=== PATIENT | female | born 2005 | race African-American/Black ===

== ENCOUNTER 2025-01-23 11:49 | Emergency (ER) | payer OTHER ==
--- OUTSIDE RECORDS SUMMARY | 2025-01-23 11:55 | XMS REPORT | Continuity of Care Document ---
Author Name Unknown Address [address] [facility] [address] [place] [address] [facility] Address [address] [facility] [address] [place] [address] Care Team Providers Care Egyptologist Name Role Phone Jacoby Gaona Primary Care Physician [phone] Hernesto HILL, Bam Gonzalez Attending Clinician Unavail able Neal Jasso MD Attending Clinician [phone] Nash Simpson MD Attending Clinician Roopa Gee DO Attending Clinician + Tory Dobbs MD Attending Clinician [phone] GUILLE SUNSHINE Attending Clinician Unavailable Rosanne Neil CNM Attending Clinician NIHCOLAS FRAZIER Attending Clinician Unavail able ROSANNE NEIL Attending Clinician UnavailNicholas Villareal Attending Clinician + NEAL JASSO Attending Clinician Unavailable NEAL JASSO Attending Clinician Unavailable Ultrasound, Ang-Mfm Attending Clinician Unavaila MARIA EUGENIA Vincent Attending Clinician Unavailable MARIA EUGENIA STRINGER Attending Clinician Unavailable MARIA EUGENIA STRINGER Attending Clinician Unavailable Maria Eugenia Stringer MD Attending Clinician Doctor Unassigned, [place] Attending Clinician U navailable Nurse, [facility] Obgyn Attending Clini amber Unavailable Karin WHKITTYPNicholas Attending Clinician + Doctor Unassigned, [place] Attending Clinician U navailable OXANA, Kemar LOPEZ Attending Clinician Unavailable Oxana PACKemar Attending Clinician [phone] SUMI NOVOA Attending Clinician Unavailable Sumi Novoa MD Attending Clinician [phone] Neal Jasso MD Admitting Clinician [phone] Kemar RUANO Admitting Clinician Unavailable Payers Payer Name Policy Type Policy Number Effective Date Expirati on Date Source [facility] [id number] 2023 00:00:00 Problems Condition Name Condition Details Condition Category Status Onset Date Resolution Date Last Treatment Date Treating Clinician Comments Source 39 weeks gestation of 39 weeks gestation of Disease Active 8-05 00:00: 00 [facility] Encounter for elective induction of labor Encounter for elective induction of labor Disease Active 8-05 00:00: 00 [facility] GBS (group B Streptococ cus carrier), +RV culture, currently GBS (group B Streptococ cus carrier), +RV culture, currently Disease Active 7-29 00:00: 00 [facility] Obesity affecting in third trimester Obesity affecting in third trimester Disease Active 6-20 00:00: 00 [facility] Anemia of mother in , antepartum Anemia of mother in , antepartum Disease Active 5-08 00:00: 00 [facility] Excessive weight gain affecting Excessive weight gain affecting Disease Active 4-22 00:00: 00 [facility] Maternal varicella, non-immune Maternal varicella, non-immune Disease Active 2023-06 2-26 00:00: 00 [facility] Flu vaccine refused Flu vaccine refused Disease Active 2023-06 2-23 00:00: 00 [facility] No known active problems No known active problems Disease [facility] Nausea and vomiting during Nausea and vomiting during Disease Resolve d 2023-06 00:00: 00 2024-07-08 00:00:00 2024-07-08 14:04:12 [facility] Need for HPV vaccinatio n Need for HPV vaccinatio n Disease Resolve d 3-11 00:00: 00 2024-06-06 00:00:00 2024-06-06 09:34:09 [facility] Allergies, Adverse Reactions, Alerts Allergy Name Allergy Type Status Severity Reaction(s) Onset Date Inactive Date Treating Clinician Comments Source SEAFOOD/ FISH Food Active Swelling 2023-06 00:00: 00 [facility] Seafood/ Fish Propensi ty to adverse reaction s Active Swelling 2023-06 00:00: 00 [facility] SHRIMP DRUG INGREDI Active Swelling 2020-06 00:00: 00 [facility] Shrimp Propensi ty to adverse reaction s Active Swelling 2020-06 00:00: 00 [facility] Social History Social Habit Start Date Stop Date Quantity Comments Source ASSERTION 2024-05-02 00:00:00 Not [facility] Exposure to SARS-CoV-2 (event) Not sure [facility] Alcoholic beverage intake 2025-01-19 00:00:00 2025-01-19 00:00:00 Lifetime non-drinker (finding) [facility] History of Social function 2024-06-06 00:00:00 2024-06-06 00:00:00 [facility] Tobacco use and exposure 2023-02-03 00:00:00 2023-02-03 00:00:00 Smokeless tobacco non-user [facility] Alcohol intake 2023-02-03 00:00:00 2023-02-03 00:00:00 Lifetime non-drinker (finding) [facility] Sex assigned at 2003 00:00:00 2005 00:00:00 [facility] Smoking Status Start Date Stop Date Source Tobacco smoking consumption unknown [facility] Never smoked tobacco [facility] Medications Ordered Medication Name Filled Medication Name Start Date Stop Date Current Medication? Ordering Clinician Indication Dosage Frequency Signature (SIG) Comments Components Source ketorolac (TORADOL) injection 30 mg ketorolac (TORADOL) injection 30 mg 01-20 16:30: 00 01-20 20:19 :00 Yes 30mg 30 mg, Slow IV Push, ONCE, 1 dose, On Thu01/20/25 at 1130, Routine [facility] docusate (COLACE) capsule 200 mg docusate (COLACE) capsule 200 mg 01-20 14:00: 00 01-21 17:53 :37 Yes 200mg 200 mg, Oral, DAILY, First dose on Thu01/20/25 at 0900, Until Discontinu ed, Routine [facility] no.103-iron fum-folic 27 mg iron- 1 mg folic tablet no.103-iron fum-folic 27 mg iron- 1 mg folic tablet 01-20 00:00: 00 Yes [id number] 1{tbl} Take 1 tablet by mouth in the morning. [facility] docusate 100 mg capsule docusate 100 mg capsule 01-20 00:00: 00 Yes [id number] 200mg Take 2 capsules by mouth once daily as needed for Constipati on. [facility] ferrous sulfate 325 mg (65 mg iron) tablet ferrous sulfate 325 mg (65 mg iron) tablet 01-20 00:00: 00 Yes [id number] 325mg Take 1 tablet by mouth in the morning. [facility] ibuprofen 800 mg tablet ibuprofen 800 mg tablet 01-20 00:00: 00 Yes [id number] 800mg Take 1 tablet by mouth every 8 hours as needed (pain). Take with food or milk. [facility] acetaminoph en 500 mg tablet acetaminoph en 500 mg tablet 01-20 00:00: 00 Yes [id number] 1000mg Take 2 tablets by mouth every 8 hours as needed for Pain. [facility] oxyCODONE 5 mg immediate release tablet oxyCODONE 5 mg immediate release tablet 01-20 00:00: 00 01-28 04:59 :00 Yes [id number] 5mg Take 1 tablet by mouth every 6 hours as needed (pain) for up to 7 days. [facility] simethicone (GAS RELIEF (SIMETHICON E)) chewable tablet 160 mg simethicone (GAS RELIEF (SIMETHICON E)) chewable tablet 160 mg 01-19 19:00: 00 01-21 17:53 :37 Yes 160mg 160 mg, Oral, TID, First dose on Blanca 01/19/25 at 1400, Until Discontinu ed, Routine [facility] ibuprofen (MOTRIN) tablet 800 mg ibuprofen (MOTRIN) tablet 800 mg 01-19 15:30: 00 01-21 17:53 :37 Yes 800mg 800 mg, Oral, TID, First dose on [place] 01/19/25 at 1030, Until Discontinu ed, Routine [facility] acetaminoph en (TYLENOL) tablet 1,000 mg acetaminoph en (TYLENOL) tablet 1,000 mg 01-19 15:15: 00 01-21 17:53 :37 Yes 1000mg 1,000 mg, Oral, TID, First dose on [place] 01/19/25 at 1015, Until Discontinu ed, Routine [facility] rho(D) immune globulin (RHOPHYLAC) injection 300 mcg 01-19 15:02: 17 01-21 17:53 :37 No 300ug [facility] oxyCODONE immediate release tablet 5 mg oxyCODONE immediate release tablet 5 mg 01-19 15:02: 14 01-21 17:53 :37 Yes 5mg 5 mg, Oral, Q6HPRN, Starting on Blanca 01/19/25 at 1002, Until 01/21/25 at 1253, Routine, Pain (scale 7-10), 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 approving Restricted medication : NASH SIMPSON [facility] diphenhydrA MINE (BENADRYL) injection 25 mg 01-19 15:02: 14 01-21 17:53 :37 No 25mg [facility] diphenhydrA MINE (BENADRYL) tablet 25 mg 01-19 15:02: 14 01-21 17:53 :37 No 25mg [facility] ondansetron (ZOFRAN (PF)) injection 4 mg 01-19 15:02: 14 01-21 17:53 :37 No 4mg [facility] bisacodyL (DULCOLAX) suppository 10 mg 01-19 15:02: 14 01-21 17:53 :37 No 10mg [facility] magnesium hydroxide (MILK OF MAGNESIA) 400 mg/5 mL suspension 30 mL magnesium hydroxide (MILK OF MAGNESIA) 400 mg/5 mL suspension 30 mL 01-19 15:02: 14 01-21 17:53 :37 Yes 30mL 30 mL, Oral, QDAILYPRN, Starting on Blanca 01/19/25 at 1002, Until 01/21/25 at 1253, Routine, Constipati on [facility] lactated ringers IV infusion 1,000 mL 01-19 15:02: 14 01-21 17:53 :37 No 1000mL [facility] ampicillin (POLYCILLIN -N) 2,000 mg in NaCl 0.9% (NS) 100 mL MINI-BAG ampicillin (POLYCILLIN -N) 2,000 mg in NaCl 0.9% (NS) 100 mL MINI-BAG 01-19 14:30: 00 01-20 09:40 :00 Yes 2g 2,000 mg (2 g), IV Piggyback, Q6H ABX, 4 doses, First dose on Blanca 01/19/25 at 0930, Last dose on Thu01/20/25 at 0330, Administer over 30 Minutes, 100 mL, Reason for Anti-Infec tive: Empiric Therapy for Suspected Infection, Empiric Therapy Site: Pelvic, Duration of therapy: Other (days), Other (days): 2 [facility] gentamicin 400 mg in NaCl 0.9% (NS) 240 mL IVPB gentamicin 400 mg in NaCl 0.9% (NS) 240 mL IVPB 01-19 14:30: 00 01-19 16:53 :00 Yes 5mg/kg 400 mg (rounded from 391 mg = 5 mg/kg ?78.2 kg Adjusted weight), IV Infusion, Q24H ABX, 1 dose, First dose on [place]anca 01/19/25 at 0930, Administer over 60 Minutes, 250 mL, Indication for aminoglyco side: Documented /suspected gram-negat erlinda infection, Patient has/is: None of the above, Reason for Anti-Infec tive: Empiric Therapy for Suspected Infection, Empiric Therapy Site: Pelvic, Duration of therapy: Other (days), Other (days): 2 [facility] sennosides (SENOKOT) tablet 8.6 mg sennosides (SENOKOT) tablet 8.6 mg 01-19 14:00: 00 01-21 17:53 :37 Yes 8.6mg 8.6 mg, Oral, DAILY, First dose on [place]anca 01/19/25 at 0900, Until Discontinu ed, Routine [facility] docusate (COLACE) capsule 100 mg docusate (COLACE) capsule 100 mg 01-19 14:00: 00 01-21 17:53 :37 Yes 100mg 100 mg, Oral, DAILY, First dose on [place] 01/19/25 at 0900, Until Discontinu ed, Routine [facility] morpHINE 30 mg/30 mL (fixed dose) MACHINE SPRAYER injection morpHINE 30 mg/30 mL (fixed dose) MACHINE SPRAYER injection 01-19 14:00: 00 01-20 01:59 :00 Yes Patient Bolus Dose: 1 mg, Patient Bolus Lockout Interval: 10 Minutes, Basal Rate: 0 mg/hr, Four Hour Dose Limit: 24 mg, Intravenou s, 30 mL, CONTINUOUS , Starting on Blanca 01/19/25 at 0900, Until Thu01/19/25 at 2058 [facility] ketorolac (TORADOL) injection 30 mg 01-19 13:16: 00 01-19 13:16 :00 No 30mg 30 mg, Slow IV Push, ONCE, 1 dose, On [place] 01/19/25 at 0830, Routine [facility] naloxone (NARCAN) injection 0.4 mg 01-19 12:52: 14 01-21 17:53 :37 No .4mg 0.4 mg, Slow IV Push, PRN, Starting on [place] 01/19/25 at 0752, Until 01/21/25 at 1253, Routine, Sedation/R espiratory Depression [facility] morpHINE 2 mg/mL LOAD & RESCUE INJECTION SYRG 01-19 12:52: 14 01-21 17:53 :37 No Slow IV Push, Routine [facility] sodium citrate-cit dc acid (BICITRA) 500-334 mg/5 mL solution 30 mL 01-19 10:17: 13 01-19 10:44 :00 No 30mL 30 mL, Oral, PRE-PROCED URE ONCE, 1 dose, Starting on Blanca 01/19/25 at 0517, Until [place]anca 01/19/25 at 0544, Routine, Surgery [facility] bupivacaine (preserv free) 0.5% (SENSORCAIN E MPF) injection 01-19 01:56: 00 Yes Caudal Block, ONCE INTRA PROCEDURE, Starting on Thu01/18/25 at 2055, Until Discontinu ed, Routine, Intra-op [facility] lidocaine 2% (XYLOCAINE) 20 mg/mL (2 %) injection 01-19 01:56: 00 Yes Epidural, ONCE INTRA PROCEDURE, Starting on Thu01/18/25 at 2055, Until Discontinu ed, Routine, Intra-op [facility] FENTanyl (PF) (SUBLIMAZE) injection 01-19 01:06: 00 Yes Epidural, ONCE INTRA PROCEDURE, Starting on Thu01/18/25 at 2006, Until Discontinu ed, Routine, Intra-op [facility] fentaNYL-ro pivacaine 2 mcg/mL-0.1 % (PF) in NS 200 mL epidural infusion RTU 01-18 22:57: 00 Yes Intra-op [facility] Oxytocin in Normal Saline 30 unit/500 mL IV infusion Soln 01-18 17:30: 00 01-19 15:02 :16 No 0mU/min 0-42 chet-unit s/min (0-42 mL/hr), IV Infusion, CONTINUOUS , Starting on Thu01/18/25 at 1230, Infuse IV through a controlled infusion pump at a proximal port on the peripheral IV line. Oxytocin may be increased to 30 milliunits when ordered by a 3rd or 4th year resident or attending physician/ faculty. 3rd or 4th year resident must document a note that the increase to 30 milliunits was discussed with faculty. Oxytocin may be increased to 42 milliunits when ordered by a 3rd or 4th year resident or attending physician/ faculty. 3rd or 4th year resident must document a note that the increase to 42 milliunits was discussed with faculty. Max 42 chet-unit s/min. Oxytocin shall be maintained at a rate that achieves adequate contractio ns. "Adequate contractio ns" means 3-5 contractio ns in 10 minutes averaged over a 30-minute window -or- at least 200 MVU every 10 minutes for 2 hours if an IUPC is in place. Incrementa l dosage of oxytocin is determined by uterine and response; therefore the RN may increase or decrease the dosage by 6mu or discontinu e oxytocin based on maternal and assessment . See policy 7.11.52. For post-deliv lian uterotonic : Increase to 300 mL/hr for 1 hr then 150 mL/hr for 1 hr. For post delivery uterine atony: Start at 600 mL/hr for 1 hr then 150 mL/hr for 1 hr. [facility] lactated ringers IV infusion 500 mL 01-18 16:29: 39 01-19 07:32 :16 No 500mL at 999 mL/hr, 500 mL, IV Infusion, PRN - SEE INSTRUCTIO NS, 1 dose, Starting on Thu01/18/25 at 1129, Until [place]anca 01/19/25 at 0232, Routine [facility] ondansetron (ZOFRAN (PF)) injection 4 mg ondansetron (ZOFRAN (PF)) injection 4 mg 01-18 07:15: 00 01-18 06:43 :00 Yes 4mg 4 mg, Slow IV Push, ONCE, On Thu01/18/25 at 0215, For 1 dose, Please give medication over 2-5 minutes. [facility] ropivacaine 0.2 % (NAROPIN (PF)) epidural infusion 01-18 04:29: 00 Yes Epidural, ONCE INTRA PROCEDURE, Starting on Thu01/17/25 at 2329, Until Discontinu ed, Routine, Intra-op [facility] lidocaine-e pinephrine (XYLOCAINE W/EPINEPHRI NE) 1.5 %-1:200,000 injection 01-18 04:26: 00 Yes Epidural, ONCE INTRA PROCEDURE, Starting on Thu01/17/25 at 2326, Until Discontinu ed, Routine, Intra-op [facility] morpHINE (4 mg/mL) injection 4 mg morpHINE (4 mg/mL) injection 4 mg 01-18 02:15: 00 01-18 01:48 :00 Yes 4mg 4 mg, Slow IV Push, ONCE, 1 dose, On Thu01/17/25 at 2115, Routine [facility] fluconazole (DIFLUCAN) tablet 150 mg fluconazole (DIFLUCAN) tablet 150 mg 01-18 01:30: 00 01-18 02:30 :00 Yes 150mg 150 mg, Oral, Once, 1 dose, On Thu01/17/25 at 2030, Routine, Reason for Anti-Infec tive: Documented Infection, Documented Infection Site: Pelvic, Duration of therapy: Once (ED) [facility] sodium citrate-cit dc acid (BICITRA) 500-334 mg/5 mL solution 30 mL sodium citrate-cit dc acid (BICITRA) 500-334 mg/5 mL solution 30 mL 01-18 00:25: 39 01-18 04:18 :00 Yes 30mL 30 mL, Oral, PRE-PROCED URE ONCE, 1 dose, Starting on Thu01/17/25 at 1925, Until Thu01/17/25 at 2318, Routine, Surgery/Pr ocedure [facility] lactated ringers IV infusion 250 mL 01-18 00:25: 38 01-19 15:02 :16 No 250mL at 999 mL/hr, 250 mL, IV Infusion, PRN - SEE INSTRUCTIO NS, Starting on Thu01/17/25 at 192, Until Thu01/19/25 at 1002, Routine [facility] D5W-LR IV infusion 1,000 mL 01-18 00:25: 38 01-19 15:02 :16 No 1000mL at 1-75 mL/hr, IV Infusion, TITRATE, Starting on Thu01/17/25 at 1924, Until Thu01/19/25 at 1002, Routine [facility] Iron Fum & P-FA-Vit B & C No.9 (INTEGRA PLUS) 125 mg iron- 1 mg Cap 10-20 00:00: 00 Yes [id number] 1{capsu le} Take 1 capsule by mouth in the morning. [facility] proMETHazin e 25 mg tablet - 00:00: 00 10-04 00:00 :00 No [id number] 25mg Take 1 tablet by mouth every 4 (four) hours as needed for Nausea and Vomiting (N/V). [facility] levonorgest rel-ethinyl estradiol (SRONYX) 0.1-20 mg-mcg per tablet 02-05 00:00: 00 06-06 00:00 :00 No [id number] 1{tbl} Take 1 tablet by mouth in the morning. [facility] levonorgest rel-ethinyl estradiol (SRONYX) 0.1-20 mg-mcg per tablet 02-03 00:00: 00 Yes [id number] 1{tbl} Take 1 tablet by mouth in the morning. [facility] ibuprofen (IBU) tablet 600 mg 12-21 21:15: 00 12-21 21:20 :00 No 600mg 600 mg, Oral, ONCE, 1 dose, On 12/21/22 at 1615, CHAYA [facility] ibuprofen 600 mg tablet 12-21 00:00: 00 06-06 00:00 :00 No [id number] 600mg Take 1 tablet by mouth every 6 (six) hours as needed for Pain (scale 4-6). [facility] NaCl 0.9% (NS) IV infusion 1,000 mL 2020-06 04:30: 00 Yes 1000mL at 999 mL/hr, IV Infusion, CONTINUOUS , Starting on Blanca 05/16/21 at 2230, Until Discontinu ed, Routine [facility] diphenhydrA MINE (BENADRYL) injection 25 mg 2020-06 04:30: 00 05-17 03:20 :00 No 25mg 25 mg, Slow IV Push, ONCE, 1 dose, On [place] 05/16/21 at 2230, STAT [facility] famotidine (PEPCID (PF)) injection 20 mg 2020-06 04:30: 00 05-17 03:24 :00 No 20mg 20 mg, Slow IV Push, ONCE, 1 dose, On [place] 05/16/21 at 2230, CHAYA [facility] methylpredn isolone sod succ (SOLU-MEDRO L) injection 125 mg 2020-06 04:15: 00 05-17 03:22 :00 No 125mg 125 mg, IV Piggyback, ONCE, 1 dose, On [place] 05/16/21 at 2215, STAT [facility] predniSONE 10 mg tablet 2020-06 00:00: 00 06-06 00:00 :00 No [id number] TAKE ONE TABLET BY MOUTH REDD [facility] EPINEPHrine (EPIPEN) 0.3 mg/0.3 mL injection 2020-06 00:00: 00 05-17 05:59 :00 No [id number] .3mg 0.3 mL by Intramuscu lar route once now for 1 dose. [facility] Immunizations Ordered Immunization Name Filled Immunization Name Date Status Comments Source Varicella (varivax)(chicken pox) 2025-01-21 00:00:00 Completed [facility] TDAP 2024-11-08 00:00:00 Completed [facility] HPV9 2023-12-29 00:00:00 Completed HPV9 2023-08-24 00:00:00 Completed HPV9 2023-02-03 00:00:00 Completed [facility] HPV9 2023-02-03 00:00:00 Completed [facility] Meningococcal Polysaccharide (groups A, C, Y and W-135) conjugate vaccine (MCV4P) 2017-07-21 00:00:00 Completed TDAP 2017-07-21 00:00:00 Completed HEPATITIS A 2008-09-18 00:00:00 Completed Varicella (varivax)(chicken pox) 2008-09-18 00:00:00 Completed Pneumococcal 7 Conjugate, PCV7 (Prevnar7) 2008-01-20 00:00:00 Completed DTaP, Unspecified Formulation 2008-01-20 00:00:00 Completed HEPATITIS A 2008-01-20 00:00:00 Completed MMR 2008-01-20 00:00:00 Completed IPV 2008-01-20 00:00:00 Completed HIB 4 Dose Schedule 2005-08-19 00:00:00 Completed Pediarix (dtap/hep B/ipv) 2005-08-19 00:00:00 Completed Pneumococcal 7 Conjugate, PCV7 (Prevnar7) 2005-08-19 00:00:00 Completed MMR 2005-08-19 00:00:00 Completed Varicella (varivax)(chicken pox) 2005-08-19 00:00:00 Completed HIB 4 Dose Schedule 2004-05-13 00:00:00 Completed Pediarix (dtap/hep B/ipv) 2004-05-13 00:00:00 Completed Pneumococcal 7 Conjugate, PCV7 (Prevnar7) 2004-05-13 00:00:00 Completed HIB 4 Dose Schedule 2004-02-13 00:00:00 Completed [facility] Pediarix (dtap/hep B/ipv) 2004-02-13 00:00:00 Completed [facility] Pneumococcal 7 Conjugate, PCV7 (Prevnar7) 2004-02-13 00:00:00 Completed [facility] HIB 4 Dose Schedule 2004-02-13 00:00:00 Completed [facility] Pediarix (dtap/hep B/ipv) 2004-02-13 00:00:00 Completed [facility] Pneumococcal 7 Conjugate, PCV7 (Prevnar7) 2004-02-13 00:00:00 Completed [facility] HIB 4 Dose Schedule 2004-02-13 00:00:00 Completed [facility] Pediarix (dtap/hep B/ipv) 2004-02-13 00:00:00 Completed Pneumococcal 7 Conjugate, PCV7 (Prevnar7) 2004-02-13 00:00:00 Completed Hep B, Adol or Pedi Dosage 2003 00:00:00 Completed HPV9 Unknown Completed [facility] Vital Signs Vital Name Observation Time Observation Value Comments S ource Systolic blood pressure 2025-01-21 12:55:00 116 mm[Hg] [facility] Diastolic blood pressure 2025-01-21 12:55:00 67 mm[Hg] [facility] Heart rate 2025-01-21 12:55:00 85 /min [facility] Body temperature 2025-01-21 12:55:00 36.56 Paige [facility] Respiratory rate 2025-01-21 12:55:00 18 /min [facility] Oxygen saturation in Arterial blood by Pulse oximetry 2025-01-21 12:55:00 100 /min [facility] Body height 2025-01-17 23:45:00 167.6 cm [facility] Body weight 2025-01-17 23:45:00 106.641 kg [facility] BMI 2025-01-17 23:45:00 37.95 kg/m2 [facility] Systolic blood pressure 2025-01-19 13:00:00 136 mm[Hg] [facility] Diastolic blood pressure 2025-01-19 13:00:00 75 mm[Hg] [facility] Heart rate 2025-01-19 13:00:00 98 /min [facility] Body temperature 2025-01-19 13:00:00 38.06 Paige [facility] Respiratory rate 2025-01-19 13:00:00 20 /min [facility] Oxygen saturation in Arterial blood by Pulse oximetry 2025-01-19 13:00:00 100 /min [facility] Body height 2025-01-17 23:45:00 167.6 cm [facility] Body weight 2025-01-17 23:45:00 106.641 kg [facility] BMI 2025-01-17 23:45:00 37.95 kg/m2 [facility] Systolic blood pressure 2025-01-06 16:02:00 125 mm[Hg] [facility] Diastolic blood pressure 2025-01-06 16:02:00 72 mm[Hg] [facility] Heart rate 2025-01-06 16:02:00 109 /min [facility] Body temperature 2025-01-06 16:02:00 36.67 Paige [facility] Respiratory rate 2025-01-06 16:02:00 18 /min [facility] Body height 2025-01-06 16:02:00 167.6 cm [facility] Body weight 2025-01-06 16:02:00 101.861 kg [facility] BMI 2025-01-06 16:02:00 36.25 kg/m2 [facility] Systolic blood pressure 2024-12-14 21:07:00 133 mm[Hg] [facility] Diastolic blood pressure 2024-12-14 21:07:00 62 mm[Hg] [facility] Heart rate 2024-12-14 21:07:00 97 /min [facility] Body temperature 2024-12-14 21:07:00 36.61 Paige [facility] Respiratory rate 2024-12-14 21:07:00 17 /min [facility] Body height 2024-12-14 21:07:00 167.6 cm [facility] Body weight 2024-12-14 21:07:00 95.851 kg [facility] BMI 2024-12-14 21:07:00 34.11 kg/m2 [facility] Systolic blood pressure 2024-11-29 20:47:00 121 mm[Hg] [facility] Diastolic blood pressure 2024-11-29 20:47:00 72 mm[Hg] [facility] Heart rate 2024-11-29 20:47:00 95 /min [facility] Body temperature 2024-11-29 20:47:00 36.89 Paige [facility] Respiratory rate 2024-11-29 20:47:00 18 /min [facility] Body height 2024-11-29 20:47:00 167.6 cm [facility] Body weight 2024-11-29 20:47:00 95.312 kg [facility] BMI 2024-11-29 20:47:00 33.92 kg/m2 [facility] Systolic blood pressure 2024-11-08 20:57:00 119 mm[Hg] [facility] Diastolic blood pressure 2024-11-08 20:57:00 68 mm[Hg] [facility] Heart rate 2024-11-08 20:57:00 106 /min [facility] Body temperature 2024-11-08 20:57:00 36.72 Paige [facility] Respiratory rate 2024-11-08 20:57:00 17 /min [facility] Body height 2024-11-08 20:57:00 167.6 cm [facility] Body weight 2024-11-08 20:57:00 89.897 kg [facility] BMI 2024-11-08 20:57:00 31.99 kg/m2 [facility] Systolic blood pressure 2024-10-19 19:48:00 113 mm[Hg] [facility] Diastolic blood pressure 2024-10-19 19:48:00 71 mm[Hg] [facility] Heart rate 2024-10-19 19:48:00 83 /min [facility] Body temperature 2024-10-19 19:48:00 36.72 Paige [facility] Respiratory rate 2024-10-19 19:48:00 18 /min [facility] Body height 2024-10-19 19:48:00 167.6 cm [facility] Body weight 2024-10-19 19:48:00 87.181 kg [facility] BMI 2024-10-19 19:48:00 31.02 kg/m2 [facility] Systolic blood pressure 2024-10-04 17:30:00 127 mm[Hg] [facility] Diastolic blood pressure 2024-10-04 17:30:00 80 mm[Hg] [facility] Heart rate 2024-10-04 17:30:00 98 /min [facility] Body temperature 2024-10-04 17:30:00 35.83 Paige [facility] Respiratory rate 2024-10-04 17:30:00 18 /min [facility] Body height 2024-10-04 17:30:00 167.6 cm [facility] Body weight 2024-10-04 17:30:00 83.553 kg [facility] BMI 2024-10-04 17:30:00 29.73 kg/m2 [facility] Systolic blood pressure 2024-09-05 18:49:00 113 mm[Hg] [facility] Diastolic blood pressure 2024-09-05 18:49:00 65 mm[Hg] [facility] Heart rate 2024-09-05 18:49:00 72 /min [facility] Body temperature 2024-09-05 18:49:00 36.39 Paige [facility] Respiratory rate 2024-09-05 18:49:00 18 /min [facility] Body height 2024-09-05 18:49:00 167.6 cm [facility] Body weight 2024-09-05 18:49:00 77.656 kg pt was weighed twice on two different scales [facility] BMI 2024-09-05 18:49:00 27.63 kg/m2 [facility] Oxygen saturation in Arterial blood by Pulse oximetry 2024-09-05 18:49:00 99 /min [facility] Systolic blood pressure 2024-08-05 15:22:00 107 mm[Hg] [facility] Diastolic blood pressure 2024-08-05 15:22:00 63 mm[Hg] [facility] Heart rate 2024-08-05 15:22:00 83 /min [facility] Body temperature 2024-08-05 15:22:00 36.44 Paige [facility] Respiratory rate 2024-08-05 15:22:00 18 /min [facility] Body height 2024-08-05 15:22:00 175.3 cm [facility] Body weight 2024-08-05 15:22:00 67.784 kg [facility] BMI 2024-08-05 15:22:00 22.07 kg/m2 [facility] Systolic blood pressure 2024-07-08 15:21:00 112 mm[Hg] [facility] Diastolic blood pressure 2024-07-08 15:21:00 70 mm[Hg] [facility] Heart rate 2024-07-08 15:21:00 94 /min [facility] Body temperature 2024-07-08 15:21:00 36.61 Paige [facility] Respiratory rate 2024-07-08 15:21:00 18 /min [facility] Body height 2024-07-08 15:21:00 175.3 cm [facility] Body weight 2024-07-08 15:21:00 68.748 kg [facility] BMI 2024-07-08 15:21:00 22.38 kg/m2 [facility] Systolic blood pressure 2024-06-06 15:11:00 109 mm[Hg] [facility] Diastolic blood pressure 2024-06-06 15:11:00 74 mm[Hg] [facility] Heart rate 2024-06-06 15:11:00 80 /min [facility] Body temperature 2024-06-06 15:11:00 36.22 Paige [facility] Respiratory rate 2024-06-06 15:11:00 15 /min [facility] Body height 2024-06-06 15:11:00 175.3 cm [facility] Body weight 2024-06-06 15:11:00 67.541 kg [facility] BMI 2024-06-06 15:11:00 21.99 kg/m2 [facility] Body temperature 2023-08-24 18:29:00 36.67 Paige [facility] BMI 2023-02-03 14:34:00 19.92 kg/m2 [facility] Systolic blood pressure 2023-02-03 14:34:00 108 mm[Hg] [facility] Diastolic blood pressure 2023-02-03 14:34:00 67 mm[Hg] [facility] Heart rate 2023-02-03 14:34:00 75 /min [facility] Body temperature 2023-02-03 14:34:00 36.5 Paige [facility] Respiratory rate 2023-02-03 14:34:00 20 /min [facility] Body height 2023-02-03 14:34:00 175.3 cm [facility] Body weight 2023-02-03 14:34:00 61.19 kg [facility] Systolic blood pressure 2022-12-21 21:03:00 119 mm[Hg] [facility] Diastolic blood pressure 2022-12-21 21:03:00 74 mm[Hg] [facility] Heart rate 2022-12-21 21:03:00 83 /min [facility] Body temperature 2022-12-21 21:03:00 37.61 Paige [facility] Respiratory rate 2022-12-21 21:03:00 18 /min [facility] Body weight 2022-12-21 21:03:00 58.968 kg [facility] Oxygen saturation in Arterial blood by Pulse oximetry 2022-12-21 21:03:00 99 /min [facility] Heart rate 2021-05-17 04:15:00 90 /min [facility] Oxygen saturation in Arterial blood by Pulse oximetry 2021-05-17 04:15:00 100 /min [facility] Systolic blood pressure 2021-05-17 04:00:00 93 mm[Hg] [facility] Diastolic blood pressure 2021-05-17 04:00:00 60 mm[Hg] [facility] Respiratory rate 2021-05-17 04:00:00 14 /min [facility] Body temperature 2021-05-17 03:06:00 37.39 Paige [facility] Body height 2021-05-17 03:06:00 175.3 cm [facility] Body weight 2021-05-17 03:06:00 58.968 kg [facility] BMI 2021-05-17 03:06:00 19.20 kg/m2 [facility] Body mass index (BMI) [Percentile] Per age and sex 2021-05-17 03:06:00 24.23 % [facility] Procedures Procedure Date / Time Performed Performing Clinician Source CBC WITH DIFF 2025-01-20 09:05:00 Tracie Sanchez [facility] CBC WITH DIFF 2025-01-20 09:05:00 [facility] [id number] [facility] 2025-01-19 10:59:00 Nash Simpson [facility] CENTRAL NEURAXIAL BLOCK 2025-01-18 04:36:00 Roopa Byers [facility] CBC WITH DIFF 2025-01-18 00:58:00 Norberto Anand [facility] HEPATITIS B SURFACE ANTIGEN 2025-01-18 00:58:00 Norberto Anand [facility] HB ABO GROUPING 2025-01-18 00:58:00 Norberto Anand in [facility] RHO (D) IMMUNE GLOBULIN 2025-01-18 00:58:00 Digna Sanchez [facility] HIV 1/2 AG-AB WITH REFLEX 2025-01-18 00:58:00 Norberto Anand [facility] SYPHILIS IGG/IGM 2025-01-18 00:58:00 Norberto Anand [facility] CBC WITH DIFF 2025-01-18 00:58:00 Norberto Anand [facility] HEPATITIS B SURFACE ANTIGEN 2025-01-18 00:58:00 Norberto Anand [facility] HB ABO GROUPING 2025-01-18 00:58:00 Norberto Anand in [facility] RHO (D) IMMUNE GLOBULIN 2025-01-18 00:58:00 Digna Sanchez [facility] HIV 1/2 AG-AB WITH REFLEX 2025-01-18 00:58:00 Norberto Anand [facility] SYPHILIS IGG/IGM 2025-01-18 00:58:00 Norberto Anand [facility] HIV 1/2 AG-AB WITH REFLEX 2024-11-29 20:50:00 Nicholas Frazier [facility] SYPHILIS IGG/IGM 2024-11-29 20:50:00 Lizz Frazier [facility] TDAP VACCINE, >11 YRS, IM 2024-11-08 21:22:43 Nicholas Frazier [facility] POCT URINALYSIS 2024-10-19 19:51:00 Rosanne Neil [facility] POCT URINALYSIS 2024-10-04 17:33:00 Rosanne Neil [facility] SECOND AND THIRD TRIMESTER ULTRASOUND 2024-09-05 20:24:00 Rosanne Neil [facility] POCT URINALYSIS W/O SPECIFIC GRAVITY 2024-09-05 18:55:00 Nicholas Frazier [facility] SECOND AND THIRD TRIMESTER ULTRASOUND 2024-08-08 14:52:00 Rosanne Neil [facility] POCT URINALYSIS 2024-08-05 16:53:00 Rosanne Neil [facility] ALPHA FETOPROTEIN-MATERNAL SER 2024-08-05 15:54:00 Rosanne Neil [facility] NIPT - NON-INVASIVE TEST RESULTS 2024-07-20 18:17:12 Doctor Unassigned, [place] [facility] NIPT - NON-INVASIVE TEST RESULTS 2024-07-15 18:26:50 Doctor Unassigned, [place] [facility] POCT URINALYSIS 2024-07-08 15:22:00 Rosanne Neil [facility] POCT TEST 2024-06-06 15:04:00 Cathy Neil [facility] POCT URINALYSIS W/O SPECIFIC GRAVITY 2024-06-06 15:04:00 Rosanne Neil [facility] GARDASIL 9 (HPV 9V) VACCINE 2023-08-24 18:29:51 Nicholas Frazier [facility] GC & CHLAMYDIA AMPLIFIED ASSAY 2023-02-03 15:48:00 Nicholas Frazier [facility] HIV 1/2 AG-AB WITH REFLEX 2023-02-03 15:48:00 Nicholas Frazier [facility] SYPHILIS IGG/IGM 2023-02-03 15:48:00 Lizz Frazier [facility] GARDASIL 9 (HPV 9V) VACCINE 2023-02-03 14:55:03 Nicholas Frazier [facility] POCT TEST 2023-02-03 14:52:00 Qamar Frazier [facility] NO SHOW OR MISSED APPOINTMENT POLICY ACKNOWLEDGEMENT 2023-02-03 14:01:45 Doctor Unassigned, [place] [facility] XR TOES 2 VW LEFT 2022-12-21 21:40:28 Kemar Ruano [facility] ASSIGNMENT OF BENEFITS 2022-12-21 21:19:48 Docto r Unassigned, [place] [facility] CONSENT/REFUSAL FOR DIAGNOSIS AND TREATMENT 2022-12-21 20:59:27 Doctor Unassigned, [place] [facility] NOTICE OF PRIVACY PRACTICES 2022-12-21 20:58:31 Doctor Unassigned, [place] [facility] NOTICE OF PRIVACY PRACTICES 2021-05-17 03:01:02 Doctor Unassigned, [place] [facility] CONSENT/REFUSAL FOR DIAGNOSIS AND TREATMENT 2021-05-17 03:00:35 Doctor Unassigned, [place] [facility] Encounters Start Date/Time End Date/Time Encounter Type Admission Type Attending [facility] Care Department Encounter ID Source 2025-01-22 00:00:00 2025-01-22 16:12:16 Nurse Triage Bam Eric Miatha R [facility] 1.2.840.114 350.1.13.10 4.2.7.2.686 [id number] [facility] 2025-01-17 18:19:00 2025-01-21 12:53:00 Hospital Encounter Neal Gerard [facility] 1.2.840.114 350.1.13.10 4.2.7.2.686 [id number] [facility] 2025-01-19 06:06:00 2025-01-19 08:00:00 Surgery Nash Simpson [facility] 1.2.840.114 350.1.13.10 4.2.7.2.686 [id number] [facility] 2025-01-17 23:20:00 2025-01-17 23:20:00 Anesthesia Event Rooap Gee Rovnat [facility] 1.2.840.114 350.1.13.10 4.2.7.2.686 [id number] [facility] 2025-01-16 18:00:00 2025-01-16 18:00:00 [facility] [id number] [facility] 2025-01-12 00:00:00 2025-01-13 08:49:50 Telephone Rosanne eNil [facility]ILD [facility] 1.2.840.114 350.1.13.10 4.2.7.2.686 [id number] [facility] 2025-01-06 11:00:00 2025-01-06 11:15:00 Routine Visit R Rosanne Neil [facility] 1.2.840.114 350.1.13.10 4.2.7.2.686 [id number] [facility] 2024-12-14 15:30:00 2024-12-14 16:24:56 Routine Visit R Rosanne Neil [facility] & CHILD [facility] 1.2.840.114 350.1.13.10 4.2.7.2.686 [id number] [facility] 2024-11-29 15:45:00 2024-11-29 16:15:36 Routine Visit R ROSANNE NEIL [facility] MATERNAL & [facility] 1.2.840.114 350.1.13.10 4.2.7.2.686 [id number] [facility] 2024-11-22 15:15:00 2024-11-22 15:15:00 Outpatient R ROSANNE NEIL [facility] [id number] [facility] 2024-11-08 16:00:00 2024-11-08 16:22:15 Routine Visit R Nicholas Frazier [facility] 1.2.840.114 350.1.13.10 4.2.7.2.686 [id number] [facility] 2024-10-20 00:00:00 2024-10-20 15:47:27 Telephone Rosanne Neil [facility]ILD [facility] 1.2.840.114 350.1.13.10 4.2.7.2.686 [id number] [facility] 2024-10-20 00:00:00 2024-10-20 08:42:15 Telephone Martwilbert Rosanne Sera [facility] 1.2.840.114 350.1.13.10 4.2.7.2.686 [id number] [facility] 2024-10-19 14:15:00 2024-10-19 15:47:05 Outpatient R NICHOLAS FRAZIER [facility] [id number] [facility] 2024-10-19 14:15:00 2024-10-19 15:47:05 Routine Visit Nicholas Frazier [facility] 1.2.840.114 350.1.13.10 4.2.7.2.686 [id number] [facility] 2024-10-04 12:30:00 2024-10-04 12:50:29 Outpatient R ROSANNE NEIL [facility] [id number] [facility] 2024-10-04 12:30:00 2024-10-04 12:50:29 Routine Visit Rosanne Neil [facility] & CHILD [facility] 1..840.114 350.1.13.10 4.2.7.2.686 [id number] [facility] 2024-09-06 00:00:00 2024-09-06 09:34:36 Abstract Rosanne Neil [facility] 1..840.114 350.1.13.10 4.2.7.2.686 [id number] [facility] 2024-09-05 15:00:00 2024-09-05 15:40:36 Routine Visit Nicholas Frazier [facility] MATERNAL & CHILD [facility] 1..840.114 350.1.13.10 4.2.7.2.686 [id number] [facility] 2024-09-05 13:45:00 2024-09-05 15:22:07 Outpatient P NEAL JASSO SHANNON [facility] [id number] [facility] 2024-09-05 13:45:00 2024-09-05 15:22:07 Air Pollution Auditor Visit Ultrasound, Neal Rodriguez [facility] & CHILD [facility] 1..840.114 350.1.13.10 4.2.7.2.686 [id number] [facility] 2024-08-10 00:00:00 2024-08-10 06:47:50 Abstract Rosanne Neil [facility] MATERNAL & [facility] 1.2840.114 350.1.13.10 4.2.7.2.686 [id number] [facility] 2024-08-08 08:00:00 2024-08-08 09:21:53 Outpatient P MARIA EUGENIA STRINGER KARIN FOX, KARIN [facility] [id number] [facility] 2024-08-08 08:00:00 2024-08-08 09:21:53 Air Pollution Auditor Visit Ultrasound, Maria Eugenia Emerson [facility] MATERNAL & CHILD [facility] 1.0.114 350.1.13.10 4.2.7.2.686 [id number] [facility] 2024-08-05 09:00:00 2024-08-05 09:58:41 Outpatient R ROSANNE NEIL [facility] [id number] [facility] 2024-08-05 09:00:00 2024-08-05 09:58:41 Routine Visit Rosanne Neil [facility] & CHILD [facility] 1.0.114 350.1.13.10 4.2.7.2.686 [id number] [facility] 2024-07-15 00:00:00 2024-07-30 06:11:55 Orders Only Doctor Unassigned, [place] Doctor Unassigned, [place] [facility] 1.0.114 350.1.13.10 4.2.7.2.686 [id number] [facility] 2024-07-20 00:00:00 2024-07-30 06:10:24 Orders Only Doctor Unassigned, [place] Doctor Unassigned, [place] [facility] 1.840.114 350.1.13.10 4.2.7.2.686 [id number] [facility] 2024-07-20 00:00:00 2024-07-22 08:07:42 Telephone Rosanne Neil [facility] CHILD [facility] 1.2.840.114 350.1.13.10 4.2.7.2.686 [id number] [facility] 2024-07-08 09:15:00 2024-07-08 10:21:43 Outpatient R ROSANNE NEIL [facility] [id number] [facility] 2024-07-08 09:15:00 2024-07-08 10:21:43 Routine Visit Rosanne Neil [facility] 1.2.840.114 350.1.13.10 4.2.7.2.686 [id number] [facility] 2024-07-05 09:00:00 2024-07-05 09:00:00 Outpatient R ROSANNE NEIL [facility] [id number] [facility] 2024-06-06 09:15:00 2024-06-06 10:06:18 Initial Visit Rosanne [facility] 1.2.840.114 350.1.13.10 4.2.7.2.686 [id number] [facility] 2024-06-06 08:45:00 2024-06-06 08:57:14 Outpatient R ROSANNE NEIL [facility] [id number] [facility] 2023-12-29 14:30:00 2023-12-29 14:30:00 Outpatient R NICHOLAS FRAZIER [facility] [id number] [facility] 2023-08-24 13:15:00 2023-08-24 13:30:00 Nurse Visit Nurse, Twin Rmchp Rgv Cprit ObNicholas Dobbins [facility] & CHILD [facility] 1.840.114 350.1.13.10 4.2.7.2.686 [id number] [facility] 2023-08-24 13:15:00 2023-08-24 13:15:00 Outpatient R NICHOLAS FRAZIER [facility] [id number] [facility] 2023-08-21 09:30:00 2023-08-21 09:30:00 Outpatient R ROSANNE NEIL [facility] [id number] [facility] 2023-08-19 14:15:00 2023-08-19 14:15:00 Outpatient R [facility] [id number] [facility] 2023-04-17 14:00:00 2023-04-17 14:00:00 Outpatient R [facility] [id number] [facility] 2023-03-11 14:15:00 2023-03-11 14:15:00 Outpatient R [facility] [id number] [facility] 2023-02-03 09:15:00 2023-02-03 11:36:42 Outpatient R NICHOLAS FRAZIER [facility] [id number] [facility] 2023-02-03 09:15:00 2023-02-03 11:36:42 Office Visit Nicholas Frazier [facility]ILD [facility] 1.840.114 350.1.13.10 4.2.7.2.686 [id number] [facility] 2023-02-03 00:00:00 2023-02-03 00:00:00 Orders Only Doctor Unassigned, [place] [facility] 1.840.114 350.1.13.10 4.2.7.2.686 [id number] [facility] 2022-12-21 16:04:00 2022-12-21 18:18:00 Emergency X Kemar RUANO [facility] [id number] [facility] 2022-12-21 16:04:00 2022-12-21 18:18:00 Emergency Kemar Ruano [facility] 1.2.840.114 350.1.13.10 4.2.7.2.686 [id number] [facility] 2021-05-16 21:08:00 2021-05-16 22:31:00 Emergency X SUMI NOVOA [facility] [id number] [facility] 2021-05-16 21:08:00 2021-05-16 22:31:00 Emergency Sumi Novoa [facility] 1.2.840.114 350.1.13.10 4.2.7.2.686 [id number] [facility] Results Test Description Test Time Test Comments Results Result Co mments Source [facility] [id number] 15:19:50* Test Item Value Reference Range Interpretation Comme nts RHIG CANDIDATE? (test code = 5188) No- see comment Patient is not a candidate for RhIg- Patient is Rh Positive.Performed at [facility] Laboratory Services - [facility] Blood [address] [place] [id number] Free: [phone] No. [id number] [facility] [place] [id number] 15:07:29* Test Item Value Reference Range Interpretation Comme nts Syphilis IgG/IgM (test code = 60715-4) Nonreactive Nonreactive Syphilis Serology Interpretation (test code = 96274-6) No serologic evidence of syphilis. If recent exposure is suspected, retest in 2 to 4 weeks. DEA (test code = DEA) ? [facility] [place] [id number] 15:07:29* Test Item Value Reference Range Interpretation Comme nts Syphilis IgG/IgM (test code = 59709-1) Nonreactive Nonreactive Syphilis Serology Interpretation (test code = 00553-5) No serologic evidence of syphilis. If recent exposure is suspected, retest in 2 to 4 weeks. DEA (test code = DEA) ? [facility] [id number] 04:36:00 Roopa Gee DO ? ? 01/17/2025 11:36 PM Central Neuraxial Block Date/Time: 01/17/2025 11:36PM Performed by: Roopa Gee, Authorized by: Fitz Jauregui MD ?Patient Location: OBEnd Time: 01/17/2025 11:36 PMReason for Block: OB request, Patient request, Labor analgesia, Surgical anesthesia and Post-op pain managementStaff: ?Anesthesiologist: Fitz Jauregui MD?Resident/FOOD AND BEVERAGE COORDINATOR: Roopa Gee DO ?Performed by: resident/CRNAPreanesthetic Checklist: patient identified, IV checked, risks and benefits explained, monitors and equipment checked, timeout performed, pre-op evaluation, site marked and anesthesia consentProcedure: ?Type of Neuraxial: Epidural and Continuous ? Sterility Prep cap, gloves, drape, hand hygiene and mask ? ?Sedation Level no sedation ?Patient Position: sitting ?Prep: Betadine and patient draped ? ?Monitoring: heart rate, continuous pulse ox, heart rate / toco and NIBP ?Location: lumbar (1-5) ?Lumbar: L4-L5 ?Approach:midline ? ?Technique: HAILEY air, catheter and HAILEY saline ?Guidance with: landmark technique}Epidural/Spinal [place] and/or Catheter: ?Epidural/Spinal Kit: BBraun ?Needle Type: Tuohy ?Needle Gauge: 17 G?Needle Length: 3.5 in (8.89 cm) ?Needle Insertion Depth: 8.5 ?Catheter Type: multiport ? ?CatheterSize: 19 G ? ?Catheter at Skin Depth: 13 ?Number of Attempts: 1 ?Test Dose: lidocaine 1.5% with epin ephrine 1-to-200,000 and negative ? ?Dose: 3 cc ? ?Catheter Securement Method: surgical tape, Tegaderm, clear occlusive dressing and liquid medical adhesiveAssessment: ?Block Outcome: pain improved and a full evaluation is pending ? ?Procedure Assessment: patient tolerated procedure well with no com plicationsNotes: ? ?The patient was prepped and draped in sterile fashion. Lidocaine was injected at the site of epidural needle insertion. Good HAILEY at 8.5 cm. Catheter threaded to 13 cm without issues. Aspiration negative x 3, test dose negative. VSS throughout procedure.[facility] 1/2 AG-AB WITH [id number] 02:42:36* Test Item Value Reference Range Interpretation Comme nts HIV Semi-quantitative (test code = 36516-6) 0.09 Negative DEA (test code = DEA) Non-reactive for HIV-1 antigen and HIV-1/HIV-2 antibodies. ?No laboratory evidence of HIV infection. ?Repeat in 2-4 weeks if acute HIV infection is suspected. [facility] 1/2 AG-AB WITH [id number] 02:42:36* Test Item Value Reference Range Interpretation Comme nts HIV Semi-quantitative (test code = 55404-8) 0.09 Negative DEA (test code = DEA) Non-reactive for HIV-1 antigen and HIV-1/HIV-2 antibodies. ?No laboratory evidence of HIV infection. ?Repeat in 2-4 weeks if acute HIV infection is suspected. [facility] Surface [id number] 02:33:17 * Test Item Value Reference Range Interpretation Comme nts HBsAg Semi-Quantitative (amrik t code = 5195-3) 0.09 Negative [facility] Surface [id number] 02:33:17 * Test Item Value Reference Range Interpretation Comme nts HBsAg Semi-Quantitative (amrik t code = 5195-3) 0.[address] [facility] with [id number] 01:35:42* Test Item Value Reference Range Interpretation Comme nts WBC (test code = 6690-2) 9.88 4.30-11.10 RBC (test code = 789-8) 3.97 3.93-5.25 HGB (test code = 718-7) 10.9 g/dL 11.6-15.0 L HCT (test code = 4544-3) 33.7 % 35.7-45.2 L MCV (test code = 787-2) 84.9 fL 80.6-95.5 MCH (test code = 785-6) 27.5 pg 25.9-32.8 MCHC (test code = 786-4) 32.3 g/dL 31.6-35.1 RDW-SD (test code = 59477-1) 63.6 fL 39.0-49.9 H RDW-CV (test code = 788-0) 20.9 % 12.0-15.5 H PLT (test code = 777-3) 206 166-358 MPV (test code = 70640-4) 11.9 fL 9.5-12.9 NRBC/100 WBC (test code = 4870331439) 0 0.0-10.0 NRBC x10^3 (test code = 9214077110) See_Comment [Automated messa ge] The system which generated this result transmitted reference range: 10*3/?L. The reference range was not used to interpret this result as normal/abnormal. GRAN MAT (NEUT) % (test code = 770-8) 71.6 % IMM GRAN % (test code = 4974646598) 1 % LYMPH % (test code = 736-9) 15.9 % MONO % (test code = 5905-5) 9.6 % EOS % (test code = 713-8) 1.7 % BASO % (test code = 706-2) 0.2 % GRAN MAT x10^3(ANC) (test code = 7774497481) 7.07 10*3/uL 1.88-7.09 IMM GRAN x10^3 (test code = 3672505793) 0.1 10*3/uL 0.00-0.06 H LYMPH x10^3 (test code = 731-0) 1.57 10*3/uL 1.32-3.29 MONO x10^3 (test code = 742-7) 0.95 10*3/uL 0.33-0.92 H EOS x10^3 (test code = 711-2) 0.17 10*3/uL 0.03-0.39 BASO x10^3 (test code = 704-7) 0.01-0.07 Lab Interpretation (test code = 53657-4) Abnormal [facility] with [id number] 01:35:42* Test Item Value Reference Range Interpretation Comme nts WBC (test code = 6690-2) 9.88 4.30-11.10 RBC (test code = 789-8) 3.97 3.93-5.25 HGB (test code = 718-7) 10.9 g/dL 11.6-15.0 L HCT (test code = 4544-3) 33.7 % 35.7-45.2 L MCV (test code = 787-2) 84.9 fL 80.6-95.5 MCH (test code = 785-6) 27.5 pg 25.9-32.8 MCHC (test code = 786-4) 32.3 g/dL 31.6-35.1 RDW-SD (test code = 34515-0) 63.6 fL 39.0-49.9 H RDW-CV (test code = 788-0) 20.9 % 12.0-15.5 H PLT (test code = 777-3) 206 166-358 MPV (test code = 42606-1) 11.9 fL 9.5-12.9 NRBC/100 WBC (test code = 7526914629) 0 0.0-10.0 NRBC x10^3 (test code = 6917121341) See_Comment [Automated messa ge] The system which generated this result transmitted reference range: 10*3/?L. The reference range was not used to interpret this result as normal/abnormal. GRAN MAT (NEUT) % (test code = 770-8) 71.6 % IMM GRAN % (test code = 7775530774) 1 % LYMPH % (test code = 736-9) 15.9 % MONO % (test code = 5905-5) 9.6 % EOS % (test code = 713-8) 1.7 % BASO % (test code = 706-2) 0.2 % GRAN MAT x10^3(ANC) (test code = 2460011799) 7.07 10*3/uL 1.88-7.09 IMM GRAN x10^3 (test code = 6443504264) 0.1 10*3/uL 0.00-0.06 H LYMPH x10^3 (test code = 731-0) 1.57 10*3/uL 1.32-3.29 MONO x10^3 (test code = 742-7) 0.95 10*3/uL 0.33-0.92 H EOS x10^3 (test code = 711-2) 0.17 10*3/uL 0.03-0.39 BASO x10^3 (test code = 704-7) 0.01-0.07 Lab Interpretation (test code = 64087-2) [facility]normal [facility] [id number] 01:07:00 * Test Item Value Reference Range Interpretation Comme nts ABO & RH (test code = 20) O POSITIVE IAT (test code = 1185) Negative [facility] - [facility]CE [id number] 01:07:00 * Test Item Value Reference Range Interpretation Comme nts ABO & RH (test code = 20) O POSITIVE IAT (test code = 1185) Negative [facility] - SYPHILIS [id number] 16:03:35* Test Item Value Reference Range Interpretation Comme nts Syphilis IgG/IgM (test code = 82375-3) Nonreactive Nonreactive Syphilis Serology Interpretation (test code = 55245-0) No serologic evidence of syphilis. If recent exposure is suspected, retest in 2 to 4 weeks. DEA (test code = DEA) ? [facility]2 AG-AB WITH [id number] 04:51:54* Test Item Value Reference Range Interpretation Comme nts HIV Semi-quantitative (test code = 75206-6) 0.12 Negative DEA (test code = DEA) Non-reactive for HIV-1 antigen and HIV-1/HIV-2 antibodies. ?No laboratory evidence of HIV infection. ?Repeat in 2-4 weeks if acute HIV infection is suspected. [facility] SPECIFIC [id number] 19:51:00* Test Item Value Reference Range Interpretation Comme nts POCT U SP GRAV (test code = 3255) . 1.005-1.025 POCT PH U (test code = 3254) . 5-8 POCT U LEUK EST (test code = 3263) . Negative - N egative POCT U NIT (test code = 3262) . Negative - Negati ve POCT U PROT (test code = 3259) trace Negative - Negat erlinda POCT U GLU (test code = 3256) neg Negative - Negati ve POCT U KETONE (test code = 3258) . Negative - Neg ative POCT U UROBILI (test code = 3260) . 0.2-1 POCT U BILI (test code = 3261) . Negative - Negat erlinda POCT U BLD (test code = 3257) . Negative - Negati ve POCT U COLOR (test code = 3266) . POCT U APPEAR (test code = 3267) . [facility] URINALYSIS W SPECIFIC [id number] 17:33:00* Test Item Value Reference Range Interpretation Comme nts POCT U SP GRAV (test code = 3255) . 1.005-1.025 POCT PH U (test code = 3254) 7 mg/dl 5-8 POCT U LEUK EST (test code = 3263) trace Negative - Negative POCT U NIT (test code = 3262) neg Negative - Negati ve POCT U PROT (test code = 3259) trace Negative - Negat erlinda POCT U GLU (test code = 3256) neg Negative - Negati ve POCT U KETONE (test code = 3258) neg Negative - Neg ative POCT U UROBILI (test code = 3260) . 0.2-1 POCT U BILI (test code = 3261) . Negative - Negat erlinda POCT U BLD (test code = 3257) neg Negative - Negati ve POCT U COLOR (test code = 3266) . POCT U APPEAR (test code = 3267) . [facility] Urinalysis w/o Specific [id number] 18:55:00* Test Item Value Reference Range Interpretation Comme nts POCT PH U (test code = 3254) 6 mg/dl 5-8 POCT U LEUK EST (test code = 3263) neg Negative - Negative POCT U NIT (test code = 3262) neg Negative - Negati ve POCT U PROT (test code = 3259) trace Negative - Negat erlinda POCT U GLU (test code = 3256) neg Negative - Negati ve POCT U KETONE (test code = 3258) neg Negative - Neg ative POCT U BLD (test code = 3257) neg Negative - Negati ve Lab Interpretation (test cod e = 01396-0) Normal [facility] URINALYSIS W SPECIFIC [id number] 16:54:00* Test Item Value Reference Range Interpretation Comme nts POCT U SP GRAV (test code = 3255) . 1.005-1.025 POCT PH U (test code = 3254) 8 mg/dl 5-8 POCT U LEUK EST (test code = 3263) Neg Negative - Negative POCT U NIT (test code = 3262) Neg Negative - Negati ve POCT U PROT (test code = 3259) Trace Negative - Negat erlinda POCT U GLU (test code = 3256) Nml Negative - Negati ve POCT U KETONE (test code = 3258) None Negative - Neg ative POCT U UROBILI (test code = 3260) . 0.2-1 POCT U BILI (test code = 3261) . Negative - Negat erlinda POCT U BLD (test code = 3257) Trace Negative - Negati ve POCT U COLOR (test code = 3266) . POCT U APPEAR (test code = 3267) . [facility] - NON-INVASIVE TEST RESULTS 2024-07-20 18:17:12Ordered by an unspecified provider.[facility] - NON-INVASIVE TEST [id number] 18:26:50 Ordered by an unspecified provider.[facility] URINALYSIS W SPECIFIC [id number] 15:22:00* Test Item Value Reference Range Interpretation Comme nts POCT U SP GRAV (test code = 3255) . 1.005-1.025 POCT PH U (test code = 3254) 5 mg/dl 5-8 POCT U LEUK EST (test code = 3263) Trace Negative - Negative POCT U NIT (test code = 3262) Neg Negative - Negati ve POCT U PROT (test code = 3259) 1+ Negative - Negat erlinda POCT U GLU (test code = 3256) Nml Negative - Negati ve POCT U KETONE (test code = 3258) None Negative - Neg ative POCT U UROBILI (test code = 3260) . 0.2-1 POCT U BILI (test code = 3261) . Negative - Negat erlinda POCT U BLD (test code = 3257) Trace Negative - Negati ve POCT U COLOR (test code = 3266) . POCT U APPEAR (test code = 3267) ... [facility] Urinalysis w/o Specific [id number] 15:04:00* Test Item Value Reference Range Interpretation Comme nts POCT PH U (test code = 3254) 5 mg/dl 5-8 POCT U LEUK EST (test code = 3263) neg Negative - Negative POCT U NIT (test code = 3262) neg Negative - Negati ve POCT U PROT (test code = 3259) trace Negative - Negat erlinda POCT U GLU (test code = 3256) neg Negative - Negati ve POCT U KETONE (test code = 3258) neg Negative - Neg ative POCT U BLD (test code = 3257) trace Negative - Negati ve [facility] [id number] 15:04:00* Test Item Value Reference Range Interpretation Comme nts POCT PREG (test code = 1605) Negative On board controls acceptable with C Line (test code = 3574) Yes POCT PREG LOT # (test code = 3575) POCT PREG TEST DATE ( test code = 3576) [facility] [id number] 14:52:00* Test Item Value Reference Range Interpretation Comme nts POCT PREG (test code = 1605) Negative On board controls acceptable with C Line (test code = 3574) Yes POCT PREG LOT # (test code = 3575) POCT PREG TEST DATE ( test code = 3576) [facility] [id number] 14:52:00* Test Item Value Reference Range Interpretation Comme nts POCT PREG (test code = 1605) Negative On board controls acceptable with C Line (test code = 3574) Yes POCT PREG LOT # (test code = 3575) POCT PREG TEST DATE ( test code = 3576) [facility] [id number] 14:52:00* Test Item Value Reference Range Interpretation Comme nts POCT PREG (test code = 1605) Negative On board controls acceptable with C Line (test code = 3574) Yes POCT PREG LOT # (test code = 3575) POCT PREG TEST DATE ( test code = 3576) [facility] [id number] 14:52:00* Test Item Value Reference Range Interpretation Comme nts POCT PREG (test code = 1605) Negative On board controls acceptable with C Line (test code = 3574) Yes POCT PREG LOT # (test code = 3575) POCT PREG TEST DATE ( test code = 3576) [facility] [id number] 14:52:00* Test Item Value Reference Range Interpretation Comme nts POCT PREG (test code = 1605) Negative On board controls acceptable with C Line (test code = 3574) Yes POCT PREG LOT # (test code = 3575) POCT PREG TEST DATE ( test code = 3576) [facility] History and Physical Notes Date/Time Note Provider Source 2025-01-17 19:27:08 TRIAGE/ADMISSION HISTORY & PHYSICAL TRIAGE/ADMISSION DATE: 01/17/2025 7:27 PM OB ATTENDING IN TRIAGE AND/OR ON ADMISSION: NEAL JASSO IDENTIFYING DATA Bo Dykes is 19 year old, Black or , 39w1d, female with PARKER. Patient's last menstrual period was 04/18/2024 (approximate). : 2005 Primary [facility] Care Clinic: [facility] CHIEF COMPLAINT sIOL HISTORY OF PRESENT ILLNESS Bo Dykes is a 19 year old at 39w1d who presents for sIOL. Patient denies vaginal bleeding, denies leakage of fluid, denies contractions. Patient denies headache, denies nausea/vomiting, denies RUQ pain, denies visual abnormalities. Endorses normal movement. PAST OBSTETRIC HISTORY OB History Para Term AB Living 1 SAB IAB Ectopic Multiple Live Births # Outcome Date GA Lbr Alok/2nd Weight Sex Type Anes PTL Lv 1 Current PAST MEDICAL HISTORY Patient Active Problem List Diagnosis Date Noted 39 weeks gestation of 01/17/2025 Encounter for elective induction of labor 01/17/2025 GBS (group B Streptococcus carrier), +RV culture, currently 01/10/2025 Obesity affecting in third trimester 12/02/2024 Anemia of mother in , antepartum 10/20/2024 Excessive weight gain affecting 10/04/2024 Alpha thalassemia silent carrier 07/20/2024 Genetic carrier 07/20/2024 Maternal varicella, non-immune 06/09/2024 Flu vaccine refused 06/06/2024 Operations: Past Surgical History: Procedure Laterality Date OTHER 2004 fx right arm per pt Prior surgeries at outside hospitals: none No past medical history on file. CURRENT HEALTH STATUS Medications: Current Facility-Administered Medications Medication Dose Route Frequency Last Rate Last Admin D5W-LR IV infusion 1,000 mL 1,000 mL IV Infusion TITRATE lactated ringers IV infusion 250 mL 250 mL IV Infusion PRN - SEE INSTRUCTIONS lidocaine 1% (PF) (XYLOCAINE) injection 0.3 mL 0.3 mL Infiltration PRN - SEE INSTRUCTIONS lidocaine 1% (XYLOCAINE) 10 mg/mL (1 %) injection 50 mL 50 mL Infiltration PRN - SEE INSTRUCTIONS Oxytocin in Normal Saline 30 unit/500 mL IV infusion Soln 0-42 chet-units/min IV Infusion CONTINUOUS penicillin g potassium 5 Million Units in NaCl 0.9% (NS) 100 mL MINI-BAG 5 Million Units IV Piggyback ONCE Held at 01/17/25 1930 Followed by penicillin GK 3 million units in NS 50 mL IV infusion (CNR) 3 Million Units IV Piggyback Q4H ABX sodium citrate-citric acid (BICITRA) 500-334 mg/5 mL solution 30 mL 30 mL Oral PRE-PROCEDURE ONCE Allergies and drug reactions: Seafood/fish and Shrimp HOME MEDICATIONS Medications Prior to Admission Medication Sig Dispense Refill Last Dose/Taking Iron Fum & P-FA-Vit B & C No.9 (INTEGRA PLUS) 125 mg iron- 1 mg Cap Take 1 capsule by mouth in the morning. 30 capsule 6 SOCIAL HISTORY Tobacco History: Social History Tobacco Use Smoking Status Never Smokeless Tobacco Never Drug History: Social History Substance and Sexual Activity Drug Use Never Alcohol History: Social History Substance and Sexual Activity Alcohol Use Never FAMILY HISTORY Family History Problem Relation Age of Onset No Significant Medical Problems Mother No Significant Medical Problems Father Cancer Maternal Aunt stomach Diabetes Maternal Grandfather REVIEW OF SYSTEMS General: negative Constitutional: negative Eyes: negative ENT/Mouth: negative Cardiovascular: negative Respiratory: negative Gastrointestinal:negative Genitourinary: negative Musculoskeletal: negative Skin/breast: negative Neurological: negative Psychiatric: negative Endocrine: negative Hemat/Lymph: negative Allergic/Immuno:none VITAL SIGNS BP: (118-132)/(68-90) MAP (mmHg): [82-97] Temp: [37.1 ?C (98.7 ?F)] Temp source: Axillary (01/17 1845) Pulse: [90-97] Resp: [17] SpO2: [98 %-100 %] Height: [167.6 cm (5' 6")] Weight: [101.6 kg (224 lb)-106.6 kg (235 lb 1.6 oz)] BMI (calculated): [36.15-37.95] PHYSICAL EXAMINATIONS General: patient alert and in no acute distress HEENT: symmetric, negative for masses Lungs: unlabored breathing Breast: deferred Cardiology: peripheral pulses intact and regular Abdomen: soft, non-tender, non-distended, no liver, spleen or abnormal masses palpated and Gravid Extremities: no clubbing, cyanosis, or edema Neuro: patient moving all extremities, no facial droop : REVIEW OF LABORATORY, PATHOLOGY, AND RADIOLOGY DATA Lab results: CBC BMP PT/INR WBC (10*3/?L) Date Value 01/17/2025 9.88 No results found for: "NA" No results found for: "PT" RBC (10*6/?L) Date Value 01/17/2025 3.97 No results found for: "K" No results found for: "PTINR" PLT (10*3/?L) Date Value 01/17/2025 206 No results found for: "CA" HGB (g/dL) Date Value 01/17/2025 10.9 (L) No results found for: "CL" aPTT HCT (%) Date Value 01/17/2025 33.7 (L) No results found for: "BUN" No results found for: "APTTPAT" No results found for: "CREAT" No results found for: "GLU" No results found for: "TCO2" Type & Screen Rubella Varicella ABO & RH (no units) Date Value 01/17/2025 O POSITIVE Rubella screen IgG (no units) Date Value 06/06/2024 Positive No components found for: "VZIGG" No results found for: "TSABINT" Hep B HIV Syphilis No results found for: "HBS" No results found for: "HIV" Syphilis IgG/IgM (no units) Date Value 11/29/2024 Nonreactive HBsAg (no units) Date Value 01/17/2025 Negative HBsAg Semi-Quantitative (no units) Date Value 01/17/2025 0.09 No results found for: "HIVMULTIPLEX" Group B Strep Chlamydia Group B Streptococcus by PCR (no units) Date Value 01/06/2025 Positive (A) C. trachomatis Nucleic Acid (no units) Date Value 01/06/2025 Negative GTT No results found for: "GLUF" GLUC 1 HR (mg/dL) Date Value 10/19/2024 134 No components found for: "GLU2H" No results found for: "GLU3H" PASD Screening Prior ? : No Prior Uterine Surgery?: No Placenta low lying/previa in current ? : No Screening outcome: A positive screening outcome indicates a history of prior delivery or prior uterine surgery, AND the presence of either a placenta low lying/previa or ultrasound suspicion of PASD in the current . Negative screening. Present on Admission: 39 weeks gestation of Encounter for elective induction of labor Excessive weight gain affecting Anemia of mother in , antepartum Obesity affecting in third trimester GBS (group B Streptococcus carrier), +RV culture, currently Alpha thalassemia silent carrier TRIAGE/ADMISSION ASSESSMENT AND PLAN Brucevinnybernardino Dykes is a 19 year old at 39w1d by d/u (16 wks.) who presents for sIOL. . sIOL - Denies contractions, VB, and LOF. Endorses normal FM. - SVE: 1 / 0 % / Floating - Contractions (number / 10 minute): 2/irrit - Plan: Admit for IOL. Plan for FB. GBS+ Plan: - PCN intrapartum. Anemia - Patient denies anemia symptoms. - BP: 120s-132/60s-74; HR: 90s-97 - HGB: 10.9 (01/06/2025) Plan: - PP iron supplementation. 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 Antepartum course reviewed: - 1 h 134, sero negative, Rimmune, VZVnot immune, HPV vaccinated, COVID unknown, O positive/IAT negative, GBS positive, Pap needs PP. - H/H, plt: 10.9 / 34.2, 223 on 01/06/2025 - PP control plan: Undecided. - [facility] Fetus: - Presentation on admission: Cephalic - Anterior placenta - EFW: 3,637 g, 65%tile. - DVP: 4.76 cm. - FHT reactive and reassuring - Normal anatomy scan Plan was discussed with OB ATTENDING: NEAL JASSO OB RESIDENT: Norberto Sanchez MD Obstetrics & Gynecology, PGY-2 01/17/25 8:26 PM Cosigned by Neal Jasso MD at 01/17/2025 11:48 PM CDT Associated attestation - Neal Jasso MD - 01/17/2025 11:48 PM CDT I was supervising [facility] faculty for the admission of this patient.The admission plan was discussed with me. [facility] - [facility] Procedure Notes Date/Time Note Provider Source 2025-01-17 23:36:29 Associated Order(s): Central Neuraxial Block Central Neuraxial Block Date/Time: 01/17/2025 11:36 PM Performed by: Roopa Gee DO Authorized by: Fitz Jauregui MD Patient Location: OB End Time: 01/17/2025 11:36 PM Reason for Block: OB request, Patient request, Labor analgesia, Surgical anesthesia and Post-op pain management Staff: Anesthesiologist: Fitz Jauregui MD Resident/FOOD AND BEVERAGE COORDINATOR: Roopa Gee DO Performed by: resident/FOOD AND BEVERAGE COORDINATOR Preanesthetic Checklist: patient identified, IV checked, risks and benefits explained, monitors and equipment checked, timeout performed, pre-op evaluation, site marked and anesthesia consent Procedure: Type of Neuraxial: Epidural and Continuous Sterility Prep cap, gloves, drape, hand hygiene and mask Sedation Level no sedation Patient Position: sitting Prep: Betadine and patient draped Monitoring: heart rate, continuous pulse ox, heart rate / toco and NIBP Location: lumbar (1-5) Lumbar: L4-L5 Approach: midline Technique: HAILEY air, catheter and HAILEY saline Guidance with: landmark technique} Epidural/Spinal [place] and/or Catheter: Epidural/Spinal Kit: BBraun Needle Type: Tuohy Needle Gauge: 17 G Needle Length: 3.5 in (8.89 cm) Needle Insertion Depth: 8.5 Catheter Type: multiport Catheter Size: 19 G Catheter at Skin Depth: 13 Number of Attempts: 1 Test Dose: lidocaine 1.5% with epinephrine 1-to-200,000 and negative Dose: 3 cc Catheter Securement Method: surgical tape, Tegaderm, clear occlusive dressing and liquid medical adhesive Assessment: Block Outcome: pain improved and a full evaluation is pending Procedure Assessment: patient tolerated procedure well with no complications Notes: The patient was prepped and draped in sterile fashion. Lidocaine was injected at the site of epidural needle insertion. Good HAILEY at 8.5 cm. Catheter threaded to 13 cm without issues. Aspiration negative x 3, test dose negative. VSS throughout procedure. ANESTHESIOLOGY [facility] Notes Date/Time Note Provider Source 2025-01-22 15:29:00 Regarding: Patient is calling stating she is in alot of pain. on 01/19/25 ----- Message from Patient Substation Engineer sent at 01/22/2025 3:29 PM CDT ----- Bo Tabitha Dykes is a 19 year old female Patient is calling stating she is in alot of pain Had on 01/19/25 Bam Eric RN [facility] 2025-01-22 15:29:00 Images from the original note were not included. Adult Triage Assessment Last Clinic Visit: [facility] 01/06 and C/S on 01/17. NOV with nurse 01/27. Primary Symptom: "she is in alot of pain. Had on 01/19/25" Onset / Duration: got really bad at night time and when first waking up Location / Description: sometimes all over stomach pain but mostly on incision Pain / Severity: took last Oxycodone and it's a 5 now but was a 10 Associated Symptoms: denies leg swelling. No body aches or chills. Denies any opening of incision. Fever / Method: denies Hydration: 3 cups of water today. No problem with urinating or pooping. Treatment so far: Oxycodone, Tylenol and Ibuprofen. Usually takes a Tylenol with the Oxycodone. Effect on ADL's: denies LMP: PP Pre-existing condition / Immunocompromised: Reason for Disposition [1] MILD to MODERATE post-op pain (e.g., pain scale 1-7) AND [2] not relieved with pain medication Protocols used: - [id number] Bo Dykes is a 19 year old female. With c/o "pain at c/s incision site. Took last Oxycodone." Per triage protocol, supervisor forming and tempering paged out. Recommendations given and pt notified. Bo Dykes advised to call [facility]FT @ [phone] if present or new symptoms should occur. Pt verbalizes understanding. T [facility] [employer] 2025-01-22 15:29:00 Application Systems Engineer for [facility] clinic paged [facility] [employer] 2025-01-22 15:29:00 Corina Guallpa supervisor forming and tempering returned call. States, "FINAL INSPECTOR TRUCK TRAILER can't prescribe outpt narcotics. Only the residents can. So she can use warm compress on the outside and not on incision. Take Ibuprofen and if it continues not to work call the resident." Pt called and notified of supervisor forming and tempering's recommendations. Pt verbalizes understanding. [facility] [employer] 2025-01-21 11:34:31 Problem: Falls, Risk of Goal: Absence of falls Outcome: Adequate for discharge Problem: Discharge Planning - Goal: Adequate for discharge Outcome: Adequate for discharge Goal: Mood stable Outcome: Adequate for discharge Problem: Skin integrity Impaired (Risk or Actual) Goal: Wound healing Outcome: Adequate for discharge Goal: Prevention of new skin breakdown Outcome: Adequate for discharge [facility] 2025-01-21 11:31:15 Images from the original note were not included. This note was copied from a baby's chart. Assessment (most recent) Assessment - 01/21/25 1123 General Information Visit Follow-up Percent of weight loss- 4.12 Feeding plan Breast and Formula Breast Pump Has Breast Pump Electric;Hospital grade Ameda pump Oral Assessment Oral assessment Deferred Baby is swaddled and asleep in the bassinet. Date of 01/19/25 Time of 0648 location Mother Baby Unit Is this a multiple ? No Breast Assessment Breast Assessment No change from previous assessment Literature Resources Education On-demand feeds at least 8 or more over 24 hours;Diaper counts/color;Risk of formula supplementation;Delay of pacifier/artificial nipples up to 4 weeks;Benefits of skin to skin contact;2nd day/growth spurt cluster feeds;Maternal nutrition/hydration;Use/se ttings of pump;Pump frequency;Lactogenesis;Way s to increase milk supply Bus Attendant Observation Reported;Mom states latches well with no pain Encouraged to either direct feed or to pump q 2-3 hours to initiate and maintain her milk supply. Mother demonstrated teach back of Positioning and latching at breast;Breast massage and hand expression Follow up Mom will call staff;[facility] warmline;WIC Recommended Feeding Plan Recommended feeding plan Frequent tkji-qi-dptx time with parents;On-demand , 8-12 times in 24 hours not to exceed 6 hours between feeds;Offer both breasts prior to formula supplementation;Mother choosing to supplement with formula after breastfeeds;Supplement using bottle nipple;Pump/hand express minimum 8 times in 24 hours including nights. Pump for 15-25 min. For success, to stimulate the breasts 8-10 times/24 hours either by direct feeding or by breastpumping. IF desires to supplement, only after . OTHER $ SERVICES Follow-up Antonia REY, RNC-OB, IBCLC Antonia Coats RN [facility] 2025-01-21 05:03:16 Problem: Falls, Risk of Goal: Absence of falls Outcome: Progressing as expected Problem: Discharge Planning - Goal: Adequate for discharge Outcome: Progressing as expected Goal: Mood stable Outcome: Progressing as expected Problem: Skin integrity Impaired (Risk or Actual) Goal: Wound healing Outcome: Progressing as expected Goal: Prevention of new skin breakdown Outcome: Progressing as expected Problem: Intrapartum process (including labor pain) Goal: Absence of or reduction of complications of labor Outcome: Resolved Goal: Able to cope with pain Outcome: Resolved Goal: Adequate to move to next level of care Outcome: Resolved Goal: Reduction in pain sensation Outcome: Resolved Shantal Doyle RN [facility] 2025-01-20 11:18:06 Images from the original note were not included. This note was copied from a baby's chart. Assessment (most recent) Assessment - 01/20/25 1111 General Information Visit Initial Percent of weight loss- Infant 0.41 Number of voids last 24 hours- -- wet dipaer changed with exam Number of stools last 24 hours- -- large transitional stool diaper changed with the exam Mom's age (years) 19 years Gestational age 39.3 weeks 1 Parity 1 Living Children 1 Feeding plan Breast Attended class No plans As long as possible Planned maternity leave Stay at home mom Breast Pump Ordered Breast Pump Electric approved through the [employer] Class WIC;Medicaid Maternal medications prior to admission vitamin;Iron Delivery method Breast changes during Enlarged;Tenderness;Darken ing of areola Risk factors Anemia;Obesity GBSP Breast Surgery/ History None Infant Oral Assessment Oral assessment New assessment Date of 01/19/25 Time of 0648 location L&D PACU Chin Normal Tongue assessment Normal Restricted tongue motion observed Able to cup finger;Able to strip gloved finger ENT consult recommended No Upper lip assessment Can flange;Normal head assessment Molding Is this a multiple ? No Breast Assessment Breast Assessment Initial Symmetry Symmetrical Size L (D-DD) Shape Rounded;Pendulous Other Soft Scars on breast: No Nipple & Areola Assessment Left Areola Pliable Right Areola Pliable Left Nipple Colostrum visible;Intact;Everted;Estefania rts w/stimulation;Short;Medium Right Nipple Colostrum visible;Intact;Everted;Estefania rts w/stimulation;Short;Medium Literature Resources Resources Understanding Mother and Baby Care; channel Increasing Milk Supply Education Infant hunger cues;On-demand feeds at least 8 or more over 24 hours;Diaper counts/color;Delay of pacifier/artificial nipples up to 4 weeks;Benefits of skin to skin contact;2nd day/growth spurt cluster feeds;Maternal nutrition/hydration;Lactog enesis;Benefits of breast massage and hand expression;Ways to increase milk supply Handouts given [place] Bus Attendant Observation Pumping No Assist with latch;Observed;Reported;Mo m states has painful latches reported latches felt like she was biting Position left side Football;Infant latched effectively;Suckled in coordinated bursts mother reports no pain with latch; states feels now like a strong pulling vs biting. Interventions Placed skin to skin hold more closely agaiinst her chest wall; use he rforearm to provide full back support and bring the baby in for a deeper latch. Mother demonstrated teach back of Positioning and latching infant at breast Follow up Mom will call staff;[facility] warmline;[place] provided the contact information for the [place] office Recommended Feeding Plan Recommended feeding plan Frequent pxyy-ee-wfru time with parents;On-demand , 8-12 times in 24 hours not to exceed 6 hours between feeds;Offer both breasts prior to formula supplementation;Mother choosing to supplement with formula after breastfeeds;No medical indication for formula supplementation OTHER $ SERVICES Initial Antonia REY, RNC-OB, IBCLC [facility] 2025-01-19 21:18:07 Problem: Intrapartum process (including labor pain) Goal: Absence of or reduction of complications of labor 01/19/20252117 by Katalina King RN Outcome: Progressing as expected 01/19/20252117 by Katalina King RN Outcome: Not progressing as expected Goal: Able to cope with pain 01/19/20252117 by Katalina King RN Outcome: Progressing as expected 01/19/20252117 by Katalina King RN Outcome: Not progressing as expected Goal: Adequate to move to next level of care 01/19/20252117 by Katalina King RN Outcome: Progressing as expected 01/19/20252117 by Katalina King RN Outcome: Not progressing as expected Goal: Reduction in pain sensation 01/19/20252117 by Katalina King RN Outcome: Progressing as expected 01/19/20252117 by Katalina King RN Outcome: Not progressing as expected Problem: Falls, Risk of Goal: Absence of falls 01/19/20252117 by Katalina King RN Outcome: Progressing as expected 01/19/20252117 by Katalina King RN Outcome: Not progressing as expected Problem: Discharge Planning - Goal: Adequate for discharge 01/19/20252117 by Katalina King RN Outcome: Progressing as expected 01/19/20252117 by Katalina King RN Outcome: Not progressing as expected Goal: Mood stable 01/19/20252117 by Katalina King RN Outcome: Progressing as expected 01/19/20252117 by Katalina King RN Outcome: Not progressing as expected OET Katalina King RN [facility] 2025-01-19 15:48:41 Problem: Discharge Planning - Goal: Adequate for discharge Outcome: Progressing as expected Goal: Mood stable Outcome: Progressing as expected [facility] 2025-01-19 07:32:22 Delivery Date: 01/19/2025 Delivery Time: 6:48 AM DELIVERY BY SECTION Pre-op Diagnosis: The patient was taken to the operating room for a primary section due to: Elective Repeat Section at 39w3d weeks. Post-op Diagnosis: s/p primary CD via Pfannenstiel incision of a fetus in cephalic presentation. Weight: 3690 g 1 Minute 5 Minute 10 Minute Totals: 8 9 Cord gases obtained: Yes Primary Surgeon Resident: Tracie Sanchez MD Teaching Surgeon Resident: Norberto Anand MD OB Faculty: NASH SIMPSON Anesthesia/Analgesia: Epidural Labor Complications: None Intraoperative complications and/or additional findings: Normal tubes, ovaries, and uterine surface. Delivery Blood Loss Delivery: 01/19/25 0636 - 01/19/25 0748 Delivery Admission: 01/17/25 1819 - 01/19/25 0748 Delivery Delivery Admission Estimated blood loss (mL) Anesthesia 800 mL 800 mL Total 800 mL 800 mL Debrief done No Uterotonics: No TXA given: No Hemostatic/Adhesion barrier agents used: No Delivery Summary Procedures: Primary Lower uterine tranverse section with no extension Assisted delivery: Forceps attempted: No Vacuum extractor attempted: No priority: Routine Decision for stat: Specimens Removed: placenta Specimens sent to Pathology: none. Prophylactic antibiotic, Ancef 2g and Azithromycin 500mg was given before patient was taken to OR. After arrival to the operating room patient was placed in the supine position with left lateral tilt. Surgical procedure Informed Consent: The risks, benefits, complications, and alternatives were discussed with the patient. The patient understood that the risks of section include, but are not limited to: injury to nearby structures or organs, infection, blood loss and possible need for transfusion, and potential need for more surgery including hysterectomy. The patient stated understanding and desired to proceed. All questions were answered. The site of surgery was properly noted and marked. The patient was identified as Bo Dykes and the procedure verified as a delivery. A Time Out was held and the above information confirmed. Patient was placed in the supine position with a left lateral tilt after anesthesia was administered. Then she was prepped in the normal sterile fashion and draped. After adequate anesthesia was confirmed, a pfannenstiel incision was made through the anterior abdominal wall with #10 scalpel. The incision was extended sharply with the #10 scalpel through the subcutaneous tissue to the level of fascia. The fascia was entered sharply with a #10 scalpel in the midline and extended in semi-elliptical fashion with Puga scissor. The underlying muscles were dissected off the overlying fascia by grasping the superior aspect of fascia with two Trav clamps and blunt dissection was used along the midline. The fascia was further from rectus muscle with Puga scissor and/or cautery. In similar fashion, the lower aspect of fascia was also grasped with two Trav clamps and both blunt and sharp dissection was used to separate fascia from rectus muscle.. The rectus muscles were in the midline bluntly with digits. The peritoneum was then entered bluntly. The peritoneal incision was then extended superiorly and inferiorly under direct visualization with care being taken to avoid bladder and bowel. No adhesions were noted. The peritoneal incision was enlarged bluntly by lateral traction from the surgeon's and first aid director's hand. Delivery A bladder blade was inserted. A bladder flap was developed by grasping with Bruneian forcep and enter with Metzenbaun scissor. Then sharp and blunt dissection with Metzenbaum scissor and fingers were performed. Vaginal hand was given by faculty. A low transverse hysterotomy was made then with #10 scalpel and extended laterally and cephalad with fingers in a low transverse fashion with Manu Gallagher technique with care being taken to avoid injury to the fetus. The amniotic sac was then entered with spontaneous rupture of membrane, and the amniotic fluid was noted to be clear . The bladder blade was removed. Fetus was delivered in cephalic. Assistance with vacuum or forceps was not needed. With delivery, no extension was noted.Delayed cord clamping was performed for 30-60 seconds. Placenta was delivered with manual fundal massage and steady traction on cord. The placenta was delivered intact: yes Closure Uterine cavity was cleaned after placental delivery with lap sponge x 2. The hysterotomy was closed in one layer with stitches using 0 chromic with continuous locking stitches. Hemostasis was achieved as needed with electrocautery and no figure eight suture ligation. The ovaries/tubes/uterine surface were evaluated. They were found to be normal. Fascia was closed with running stitches using 0 vicryl. Hemostasis was checked for and found to be adequate. The subcutaneous tissue was irrigated and hemostasis was achieved where needed with electrocautery. Subcutaneous layer was closed with 2-0 vicryl. The skin was then closed with subcuticular stitches using 2-0 vicryl Migue sutures. The incision was cleaned and covered with a compression bandage and the procedure considered to be complete at this time. Pediatrics was present in the operating room. The was sent to PACU with family member. Clinical Trials: None Disposition: The patient tolerated the procedure well. She was recovered in Obstetric PACU for close monitoring in stable condition, with a contracted uterus and normal transvaginal bleeding. Tracie Sanchez MD Obstetrics & Gynecology, PGY-2 01/19/25 7:48 AM Cosigned by Nash Simpson MD at 01/19/2025 8:01 AM CDT Associated attestation - Nash Simpson MD - 01/19/2025 8:01 AM CDT Present for delivery. [facility] 2025-01-19 00:57:50 Intrapartum Progress Note 01/19/2025 12:57 AM Subjective: Patient has no complaints Objective: Vitals last 24 hours: Temp: [36.4 ?C (97.5 ?F)-37.5 ?C (99.5 ?F)] 36.9 ?C (98.5 ?F) Pulse: [79-116] 95 Resp: [16-20] 17 BP: (91-141)/(46-91) 125/87 Intake/Output : No intake/output data recorded. I/O last 3 completed shifts: In: 1688.3 [I.V.:74.9] Out: 2200 [Urine:2200] Assessment Active movement: Yes Mode: EFM Baseline FHR (bpm): 120 Variability: Minimal Decel Frequency: None FHR Category: II Uterine Activity: Mode: IUPC Contractions (number / 10 minute): 4 Contraction duration (seconds): 70-90 Contraction quality: Moderate Resting tone: Soft, Palpation Membrane Status Membrane status: Artificial Rupture date: 01/18/25 Rupture time: 1511 Amniotic fluid color: Clear Cervical Exam 7 / 75 % / -1 Assessment/Plan: Bo Dykes is a 19 year old at 39w3d OB Assessment: IOL, GBS OB Plan: s/p FB/LDP, Pit@1200, PCN Additional Comments/Detail: Active labor Ripening Agent: Oxytocin Intrapartum Plan: Continue active labor management Norberto Anand MD [facility] 2025-01-18 19:18:26 Problem: Intrapartum process (including labor pain) Goal: Absence of or reduction of complications of labor Outcome: Progressing as expected Goal: Able to cope with pain Outcome: Progressing as expected Goal: Adequate to move to next level of care Outcome: Progressing as expected Goal: Reduction in pain sensation Outcome: Progressing as expected Problem: Falls, Risk of Goal: Absence of falls Outcome: Progressing as expected T Carey Vasquez RN [facility] 2025-01-18 15:17:13 Intrapartum Progress Note 01/18/2025 3:17 PM Subjective: Patient has been stable and has no current complaints. Objective: Vitals last 24 hours: Temp: [36.4 ?C (97.5 ?F)-37.1 ?C (98.7 ?F)] 36.6 ?C (97.9 ?F) Pulse: [80-116] 85 Resp: [17-20] 17 BP: (91-136)/(46-90) 118/64 Intake/Output : I/O this shift: In: 21.4 [I.V.:21.4] Out: - I/O last 3 completed shifts: In: 747.9 [I.V.:12] Out: 400 [Urine:400] Assessment Active movement: Yes Mode: EFM Uterine Activity: Mode: Bergman Contractions (number / 10 minute): 3-4 Contraction duration (seconds): 20-100 Contraction quality: Moderate Resting tone: Soft, Palpation Membrane Status Membrane status: Artificial Rupture date: 01/18/25 Rupture time: 1511 Amniotic fluid color: Clear Cervical Exam 5 / 50 % / -3 Assessment/Plan: Bo Dykes is a 19 year old at 39w2d OB Assessment: IOL, GBS OB Plan: s/p FB/LDP, Pit@1200, PCN Additional Comments/Detail: s/pFB Ripening Agent: Oxytocin Arianne Bhatt MD Obstetrics & Gynecology, PGY-1 [facility] 2025-01-18 08:23:41 Problem: Intrapartum process (including labor pain) Goal: Absence of or reduction of complications of labor Outcome: Progressing as expected Goal: Able to cope with pain Outcome: Progressing as expected Goal: Adequate to move to next level of care Outcome: Progressing as expected Goal: Reduction in pain sensation Outcome: Progressing as expected Problem: Falls, Risk of Goal: Absence of falls Outcome: Progressing as expected Ciera Wolf RN [facility] 2025-01-18 03:22:59 Problem: Intrapartum process (including labor pain) Goal: Absence of or reduction of complications of labor Outcome: Progressing as expected Goal: Able to cope with pain Outcome: Progressing as expected Goal: Adequate to move to next level of care Outcome: Progressing as expected Goal: Reduction in pain sensation Outcome: Progressing as expected Melly Sanchez RN [facility] 2025-01-17 22:58:40 Name/ MRN / Age / Gender: Bo Dykes, [id number] 19 year old female BMI: Estimated body mass index is 37.95 kg/m? as calculated from the following: Height as of this encounter: 1.676 m (5' 6"). Weight as of this encounter: 106.6 kg (235 lb 1.6 oz). Allergies: Seafood/fish and Shrimp Last Vitals: BP Readings from Last 1 Encounters: 01/17/25 124/90 Pulse Readings from Last 1 Encounters: 01/17/25 90 SpO2 Readings from Last 1 Encounters: 01/17/25 98% Date of Surgery: 01/17/2025 Surgeon: * No surgeons listed * Procedure: CENTRAL NEURAXIAL BLOCK OR Location: [place] ANESTHESIA OUT OF OR - OR LOCATION Anesthesia Preop Eval (physical exam) Anesthesia Preop: Chart Review and [id number] APA Communication: 19 year old female at 39w1d requesting central neuraxial anesthesia PONV Risk Factors: female Anesthesia History Anesthesia History Negative (-) Hx of anesthetic complications Previous Anesthetics/Airways Cardiovascular Negative Cardiac ROS Comments: BP Readings from Last 3 Encounters: 01/17/25 : 124/90 01/06/25 : 125/72 12/14/24 : 133/62 (-) Hypertension Pulmonary Negative Pulmonary ROS (-) Asthma Neuro/Musculoskeletal Negative Neuro/Musculosketal ROS (-) Spinal Cord injury (-) Positioning limitations GI/Hepatic Negative GI/Hepatic ROS Hematology Negative Hematology ROS Comments: HGB (g/dL) Date Value 01/17/2025 10.9 (L) PLT (10*3/?L) Date Value 01/17/2025 206 Type and Screen Ordered: Yes Patient Accepts Blood Transfusion: Yes Renal Negative Renal ROS Skin Negative Skin ROS Endo/Other Negative Endo/Other ROS Comments: No results found for: "QOCWQBO5A" No results found for: "HGBA1C" 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 . sIOL - Denies contractions, VB, and LOF. Endorses normal FM. - SVE: 1 / 0 % / Floating - Contractions (number / 10 minute): 2/irrit - Plan: Admit for IOL. Plan for FB. GBS+ Plan: - PCN intrapartum. Anemia - Patient denies anemia symptoms. - BP: 120s-132/60s-74; HR: 90s-97 - HGB: 10.9 (01/06/2025) Plan: - PP iron supplementation. 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 19 year old female at 39w1d requesting central neuraxial anesthesia Pediatric Pediatric N/A N/A Preoperative Medication Instructions Continue taking all prescribed medications except: CONNER inhibitors, ARBs, diuretics, all oral diabetes medications Anticoagulant Therapy: Defer to surgeons Insulin: Take 1/2 dose the night prior to surgery. Hold on DOS. Phentermine: Alert [facility] anesthesiologist SGLT2 Inhibitors: "gliflozins" to be held for 3 days prior to elective surgeries GLP1 Agonosit: stop 7 days prior to surgery MAC Cases: Continue taking CONNER inhibitors and ARBs ASA Classification ASA: 2 Labs: Chemistry - CBC 01/17/2025 - - - - 9.88 10.9 (L) 206 - - - 33.7 (L) eGFR: - Date: - ANC: 7.07 Date: 01/17/2025 LFTs - Coags AST: - AP: - Prot: - Ca: - PT: - Date: - ALT: - T Charles: - Alb: - PTT: - Date: - PO4: - Date: - INR: - Date: - Cardiac Endocrine & other pBNP: - Date: - A1C: - Date: - Trop I: - Date: - POCT A1C: - Date: - CK: - Date: - TSH: - Date: - CKMB: - Date: - FT4: - Date: - LDL: - Date: - Lact: - Date: - Procal: - Date: - Respiratory -|-|-|-|- D-dimer: - ABG Date: - Date: - Miscellaneous Type and Screen: O POSITIVE Antibody: Negative Date: 01/17/2025 POCT : Negative Date: 06/06/2024 Current Medications: No outpatient medications have been marked as taking for the 01/17/25 encounter (Hospital Encounter). Previous Surgeries: Past Surgical History: Procedure Laterality Date OTHER 2004 fx right arm per pt Anesthesia Physical Exam General no apparent distress and alert and oriented x 3 Neuro/Psych neurological Nonfocal Dental no notable dental hx Abdominal (+) abdomen soft, benign and gravid Airway Mallampati score:III TM distance:> 5 cm Neck ROM: full Mouth opening:small, normal (+) Normal facies Extremity Normal extremity Pulmonary pulmonary exam normal and bilateral clear to auscultation Other Cardiovascular cardiovascular exam normalRhythm:Regular Rate: Normal Anesthesia Plan ASA Status: 2 Plan discussed during pre-op evaluation: General, Epidural, Spinal and CSE Anesthetic plan on DOS: Epidural Anesthesia plan discussed with: patient or players club representative Post-Operative Analgesia: routine analgesia & antiemetics Recovery Plan: PACU and LDR Additional comments: AN-ANESTHESIOLOGY ANESTHESIOLOGIST [facility] 2025-01-17 18:46:05 Problem: Intrapartum process (including labor pain) Goal: Absence of or reduction of complications of labor Outcome: Progressing as expected Goal: Able to cope with pain Outcome: Progressing as expected Goal: Adequate to move to next level of care Outcome: Progressing as expected Goal: Reduction in pain sensation Outcome: Progressing as expected [facility] 2025-01-13 08:49:42 Noted. [facility] 2025-01-12 15:02:41 Patient declined appointment on 01/12/25 and has induction scheduled for 01/17/25. Charlotte Castañeda [facility] 2024-10-20 15:46:32 Pt informed to call [employer] and have medication transferred from [facility], verbalized understanding. T [facility] 2024-10-20 15:25:10 Bo Dykes is a 18 year old female Pt is calling requesting to transfer her Iron Fum & P-FA-Vit B & C No.9 (INTEGRA PLUS) 125 mg iron- 1 mg Cap prescription from [facility] pharmacy to [facility] pharmacy in [place]. Please contact pt at [phone] [id number] - [place], [place] - [address] AT [facility] P: [phone] F: [phone] Stalin Carias [facility] 2024-10-20 08:40:50 Patient informed of results and new orders, verbalized understanding. T [facility] 2024-10-20 07:04:04 Please call patient and let her know I erx daily iron supplement to [facility] 2024-07-22 08:34:54 Patient informed of results and need for appt with genetics. Informed scheduling department will call to schedule, verbalized understanding. [facility] 2024-07-22 08:06:34 3rd and final attempt. No answer. Letter mailed. Chiara Chester RN 07/22/24 8:06 AM RVISOR LIQUEFACTION Chiara Chester RN [facility] 2024-07-21 09:17:44 2nd attempt to call patient, no answer, no vm setup. [facility] 2024-07-20 14:17:37 Attempted to call patient, no answer, no vm setup. 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 Information related to both of these can be viewed under the results on [employer] website. Genetic counseling referral has been place to review information and to discuss meaning to baby. Detailed ultrasound also placed. [facility] 2023-02-03 09:15:00 Addended by: NICHOLAS BRITO on: 02/03/2023 11:03 AM Modules accepted: Orders [facility] 2023-02-03 09:15:00 Addended by: CHIARA CARDOZA RN on: 02/05/2023 10:16 AM Modules accepted: Orders T Chiara Chester RN [facility]
[2025-01-23] MEDS ORDERED: NA CHLORIDE 0.9% 1,000 ML ONE (13:02)
[2025-01-23 13:28] LABS: Absolute Lymphocytes (CBC) 0.8 K/uL (0.7-4.9); Hematocrit 28.0 % (36.0-45.0); Hemoglobin 9.3 g/dL (12.0-15.0); MCH 27.7 pg (27.0-35.0); MCHC 33.4 g/dL (32.0-36.0); MCV 83.0 fL (80-100); MPV 8.7 fL (7.6-11.3); Nucleated RBC Absolute Count 0.0 (0-0); Nucleated Red Blood Cells % 0.1 % (0-0); RBC Red Blood Cell Count 3.37 M/uL (3.86-4.86); White Blood Count 8.80 thou/uL (4.3-10.9)
[2025-01-23 13:43] LABS: ALT/SGPT 55.0 U/L (13-56); AST/SGOT 42.0 U/L (15-37); Albumin 2.4 g/dL (3.4-5.0); Albumin/Globulin Ratio 0.5 (1.1-1.8); Alkaline Phosphatase 186.0 U/L (45-117); Anion Gap 8.9 mEq/L (5.0-15.0); BUN Blood Urea Nitrogen 7.0 mg/dL (7-18); Globulin 4.6 g/dL (2.3-3.5); Glucose Level 82.0 mg/dL (74-106); Potassium 3.9 mEq/L (3.5-5.1)
[2025-01-23 14:11] LABS: White Blood Cell Scan OK (OK)
[2025-01-23 14:12] LABS: Anisocytosis 1+; Blood Morphology Comment NOTED (NOT SEEN)
--- NOTE | 2025-01-23 14:13 | RAD REPORT ---
EXAM: Extremity Nonvascular Complete HISTORY: PAIN RIGHT COMPARISON: None TECHNIQUE: Sonographic grayscale and color flow imaging of the left breast including the region of in terest as described by the patient. FINDINGS: Dense breast tissue with prominent ducts. No fluid collections or masses identified. IMPRESSION: Dense breast tissue with dilated ducts which is not unexpected for the state. No mass or a bscess identified. Suggest clinical management.
--- NOTE | 2025-01-23 14:18 | RAD REPORT ---
EXAM: Extremity Nonvascular Complete HISTORY: PAIN COMPARISON: None TECHNIQUE: Sonographic grayscale and color flow imaging of the right breast including the region of i nterest as described by the patient. FINDINGS: Dense breast tissue with dilated ducts noted. No focal mass or fluid collection. IMPRESSION: Dense breast tissue with dilated ducts which is not unexpected in the state. Suggest clini driss management.
--- NOTE | 2025-01-23 15:09 | EDPHYS ---
Physician Documentation [facility] Name: Bo Dykes Age: 19 yrs Sex: Female : 2005 Arrival Date: 01/23/2025 Time: 11:49 Bed 9 Private MD: ED Physician Lenard Rasheed HPI: 01/23 15:04 This 19 yrs old Black Female presents to ER via Ambulatory with complaints of Breast kristin Problem, Post Problem - 4 days, Fever. 15:04 The patient reports fever, that was measured at 100 degrees Fahrenheit. Onset: The kristin symptoms/episode began/occurred 3 day(s) ago. Modifying factors: there are no obvious modifying factors. Associated signs and symptoms: Pertinent positives: chills, myalgias. Severity of symptoms: At their worst the symptoms were mild in the emergency department the symptoms are unchanged. The patient has not experienced similar symptoms in the past. 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 - Infectious Disease History:: Denies. - Social history:: Smoking status: Patient denies any tobacco usage or history of. ROS: 15:05 Constitutional: Negative for fever, chills, and weight loss, Eyes: Negative for injury, kristin pain, redness, and discharge, ENT: Negative for injury, pain, and discharge, Neck: Negative for injury, pain, and swelling, Cardiovascular: Negative for chest pain, palpitations, and edema, Respiratory: Negative for shortness of breath, cough, wheezing, and pleuritic chest pain, Abdomen/GI: Negative for abdominal pain, nausea, vomiting, diarrhea, and constipation, Back: Negative for injury and pain, : Negative for injury, bleeding, discharge, and swelling, MS/Extremity: Negative for injury and deformity, Neuro: Negative for headache, weakness, numbness, tingling, and seizure, Psych: Negative for depression, anxiety, suicide ideation, homicidal ideation, and hallucinations, Allergy/Immunology: Negative for hives, rash, and allergies, Endocrine: Negative for neck swelling, polydipsia, polyuria, polyphagia, and marked weight changes, Hematologic/Lymphatic: Negative for swollen nodes, abnormal bleeding, and unusual bruising, 15:05 Skin: Positive for swelling, of the right nipple, left nipple, right breast and left breast, Exam: 15:05 Constitutional: This is a well developed, well nourished patient who is awake, alert, kristin and in no acute distress. Head/Face: Normocephalic, atraumatic. Eyes: Pupils equal round and reactive to light, extra-ocular motions intact. Lids and lashes normal. Conjunctiva and sclera are non-icteric and not injected. Cornea within normal limits. Periorbital areas with no swelling, redness, or edema. ENT: Nares patent. No nasal discharge, no septal abnormalities noted. Tympanic membranes are normal and external auditory canals are clear. Oropharynx with no redness, swelling, or masses, exudates, or evidence of obstruction, uvula midline. Mucous membranes moist. Neck: Trachea midline, no thyromegaly or masses palpated, and no cervical lymphadenopathy. Supple, full range of motion without nuchal rigidity, or vertebral point tenderness. No Meningismus. Chest/axilla: Normal chest wall appearance and motion. Nontender with no deformity. No lesions are appreciated. Cardiovascular: Regular rate and rhythm with a normal S1 and S2. No gallops, murmurs, or rubs. Normal PMI, no JVD. No pulse deficits. Respiratory: Lungs have equal breath sounds bilaterally, clear to auscultation and percussion. No rales, rhonchi or wheezes noted. No increased work of breathing, no retractions or nasal flaring. Abdomen/GI: Soft, non-tender, with normal bowel sounds. No distension or tympany. No guarding or rebound. No evidence of tenderness throughout. Back: No spinal tenderness. No costovertebral tenderness. Full range of motion. Female : Normal external genitalia. MS/ Extremity: Pulses equal, no cyanosis. Neurovascular intact. Full, normal range of motion., bilateral aka Neuro: Awake and alert, GCS 15, oriented to person, place, time, and situation. Cranial nerves II-XII grossly intact. Motor strength 5/5 in all extremities. Sensory grossly intact. Cerebellar exam normal. Normal gait. Psych: Awake, alert, with orientation to person, place and time. Behavior, mood, and affect are within normal limits. 15:05 Skin: cellulitis, that is mild, on the right breast and left breast, Vital Signs: 12:28 BP 124 / 72; Pulse 108; Resp 16; Temp 98.5; Pulse Ox 99% on R/A; Height 5 ft. 6 in. ; dd2 Pain 7/10; 12:28 Pain Scale: Adult dd2 MDM: 12:36 Medical Screening Exam initiated [facility] 15:06 Differential diagnosis: viral Infection, bacterial infection, URI, bronchitis, kristin pneumonia UTI, gastroenteritis. Differential Diagnosis altered mental status, sepsis, flu. Data reviewed: vital signs, nurses notes, lab test result(s), radiologic studies, ultrasound. Consideration of Admission/Observation Escalation of care including admission/observation considered. I considered the following discharge prescriptions or medication management in the emergency department Medications were administered in the Emergency Department. See MAR. Test considered but Not performed: X-ray: no cxr. Historians other than the Patient: pt well informed. Care significantly affected by the following chronic conditions: post , breast feeding. 01/23 13:06 Order name: CBC with Diff; Complete Time: 14:48 [facility] 01/23 13:06 Order name: CMP; Complete Time: 14:48 [facility] 01/23 14:12 Order name: CBC Smear Scan; Complete Time: 14:48 EDMS 01/23 13:57 Order name: Extremity Nonvascular Complete; Complete Time: 14:48 EDMS 01/23 13:57 Order name: Extremity Nonvascular Complete; Complete Time: 14:48 EDMS Administered Medications: 13:19 Drug: NS 0.9% IV 1000 ml IV at 1000 ml once; to be given as a bolus over 60 minutes ap3 Route: IV; Rate: 1000 ml; Site: right antecubital; 15:29 Follow up: IV Status: Completed infusion; IV Intake: 1000ml ap3 15:22 Not Given (not in stockk): dicloxacillin 500 mg PO once ap3 15:29 Drug: Rocephin IV 1 grams IV at calculated rate once; Given slow IV push per pharmacy ap3 instructions Route: IV; Rate: calculated rate; Site: right antecubital; 15:29 Follow up: Response: No adverse reaction; Medication administered at discharge. ap3 Disposition Summary: 01/23/25 15:09 Discharge Ordered Notes: Location: Home [facility] Problem: new kristin Symptoms: have improved kristin Condition: Stable kristin Diagnosis - Nonpurulent mastitis associated with kristin - Fever, unspecified kristin Followup: kristin - With: Private Physician - When: 2 - 3 days - Reason: Recheck today's complaints, Continuance of care, Re-evaluation by your physician Discharge Instructions: - Discharge Summary Sheet kristin - Tips for a Good Latch kristin - Fever, Adult kristin - and Mastitis kristin - Mastitis, [id number] kristin - Fever, Adult, [id number] kristin Forms: - Medication Reconciliation Form kristin - Antibiotic Education kristin - Prescription Opioid Use kristin - Patient Portal Instructions kristin - Leadership Thank You Letter [facility] Prescriptions: - Dicloxacillin 500 mg Oral Capsule - take 1 capsule ORAL route every 6 hours for 10 days; 40 capsule; Refills: 0, kristin Product Selection Permitted Signatures: Dispatcher [employer] EDLenard Bradley MD MD cha Prokisch, Amanda, RN RN ap3 VIDAL AUGUSTE RN RN dd2 Corrections: (The following items were deleted from the chart) 13:57 13:06 Extrmty Nonvasular Limited+US.[id number] ordered. EDMS EDMS
--- NOTE | 2025-01-23 15:09 | ER ---
Nurse's Notes [facility] Name: Bo Dykes Age: 19 yrs Sex: Female : 2005 Arrival Date: 01/23/2025 Time: 11:49 Bed 9 Private MD: Diagnosis: Nonpurulent mastitis associated with ;Fever, unspecified Presentation: 01/23 12:28 Chief complaint: Patient states: BOTH BREAST FEEL ENGORGED, PAINFUL AND LEAKING. PT dd2 ALSO REPORTS BODY ACHES AND FEVER. TOOK OTC TYLENOL. 5 DAYS POST . Coronavirus screen: At this time, the client does not indicate any symptoms associated with coronavirus-19. Ebola Screen: No symptoms or risks identified at this time. Initial Sepsis Screen: Does the patient meet any 2 criteria? No. Patient's initial sepsis screen is negative. Does the patient have a suspected source of infection? No. Patient's initial sepsis screen is negative. Risk Assessment: Do you want to hurt yourself or someone else? Patient reports no desire to harm self or others. Onset of symptoms was January 22, 2025. 12:28 Method Of Arrival: Ambulatory dd2 12:28 Acuity: LOLY 3 dd2 Triage Assessment: 12:30 General: Appears in no apparent distress. uncomfortable, Behavior is calm, cooperative, dd2 appropriate for age. Pain: Complains of pain in right breast and left breast, GENERAL MUSCLES. 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 - Infectious Disease History:: Denies. - Social history:: Smoking status: Patient denies any tobacco usage or history of. Screenin:18 [facility] ED Fall Risk Assessment (Adult) History of falling in the last 3 months, ap3 including since admission No falls in past 3 months (0 pts) Confusion or Disorientation No (0 pts) Intoxicated or Sedated No (0 pts) Impaired Gait No (0 pts) Mobility Assist Device Used No (0 pt) Altered Elimination No (0 pt) Score/Fall Risk Level 0 - 2 = Low Risk Oriented to surroundings, Maintained a safe environment, Educated pt \T\ family on fall prevention, incl call for assistance when getting out of bed, Assessed \T\ reinforced patient's understanding of fall precautions, Hourly rounding (assess needs \T\ fall precautionary measures) done, Used ambulatory aids as needed (educated on \T\ assisted with). Abuse screen: Denies threats or abuse. Nutritional screening: No deficits noted. Tuberculosis screening: No symptoms or risk factors identified. Assessment: 13:04 Reassessment: Patient and/or family updated on plan of care and expected duration. Pain ll1 level reassessed. 13:17 General: Appears in no apparent distress. Behavior is calm, cooperative, appropriate ap3 for age. Pain: Complains of pain in right breast and left breast Pain currently is 6 out of 10 on a pain scale. Neuro: Level of Consciousness is awake, alert, obeys commands, Oriented to person, place, time, situation, Appropriate for age Speech is normal. Cardiovascular: Patient's skin is warm and dry. Respiratory: Airway is patent Respiratory effort is even, unlabored, Respiratory pattern is regular, symmetrical. Vital Signs: 12:28 BP 124 / 72; Pulse 108; Resp 16; Temp 98.5; Pulse Ox 99% on R/A; Height 5 ft. 6 in. ; dd2 Pain 7/10; 12:28 Pain Scale: Adult dd2 ED Course: 11:51 Patient arrived in ED. im 12:30 Triage completed. dd2 12:30 Arm band placed on right wrist. dd2 12:35 Lenard Rasheed MD is Attending Physician. kristin 13:04 Patient placed in an exam room, on a stretcher. ll1 13:17 Initial lab(s) drawn, by me, sent to lab. Inserted saline lock: 22 gauge in right ap3 antecubital area, using aseptic technique. Blood collected. Flushed with 10 mL NS. 13:19 CMP Sent. ap3 13:19 CBC with Diff Sent. ap3 13:57 Extremity Nonvascular Complete In Process Unspecified. EDMS 13:57 Extremity Nonvascular Complete In Process Unspecified. EDMS 15:13 Yaima Dominique, RN is Primary Nurse. ap3 15:32 No provider procedures requiring assistance completed. IV discontinued, intact, ap3 bleeding controlled, No redness/swelling at site. Pressure dressing applied. 15:33 Patient has correct armband on for positive identification. Provided Education on: fall ap3 risk education. Administered Medications: 13:19 Drug: NS 0.9% IV 1000 ml IV at 1000 ml once; to be given as a bolus over 60 minutes ap3 Route: IV; Rate: 1000 ml; Site: right antecubital; 15:29 Follow up: IV Status: Completed infusion; IV Intake: 1000ml ap3 15:22 Not Given (not in stockk): dicloxacillin 500 mg PO once ap3 15:29 Drug: Rocephin IV 1 grams IV at calculated rate once; Given slow IV push per pharmacy ap3 instructions Route: IV; Rate: calculated rate; Site: right antecubital; 15:29 Follow up: Response: No adverse reaction; Medication administered at discharge. ap3 Medication: 13:18 VIS not applicable for this client. ap3 Intake: 15:29 IV: 1000ml; Total: 1000ml. ap3 Outcome: 15:09 Discharge ordered by . kristin 15:33 Discharged to home ambulatory, with family, ap3 15:33 Condition: good 15:33 Discharge instructions given to patient, Instructed on discharge instructions, follow up and referral plans. medication usage, Demonstrated understanding of instructions, follow-up care, medications, Prescriptions given X 1, 15:33 Patient left the ED. ap3 Signatures: Dispatcher [employer] EDMS Lenard Rasheed MD MD cha Prokisch, Amanda RN RN ap3 Chris Avitia RN RN cliff1 Kell Mendez DIANA, RN RN dd2
[2025-01-23 16:45] VITALS: BP 124/72; TEMP 98.5; O2SAT 99
== END 2025-01-23 15:33 | disposition home or self-care (01) ==
LOC: ER 11:49
DX: O91.23 Nonpurulent mastitis associated with lactation (principal)
CPT/HCPCS: 96361; 85025; 36415; 80053; 76881 ×2; 96374; 99284; J7030